=== PATIENT | male | born 1950 | race Caucasian/White ===

== ENCOUNTER 2017-05-24 03:06 | Emergency (ER) | payer OTHER ==
[~2017-05-24] VITALS: Ht 170.2 cm; Wt 87.0 kg
[2017-05-24 03:17] VITALS: TEMP 36.7; Ht 170.2 cm; Wt 87.0 kg
[2017-05-24] MEDS ORDERED: OMEP20TA PO (03:29)
[2017-05-24] MEDS ORDERED: DSY/50 PO (03:30)
[2017-05-24] MEDS ORDERED: NTRGSL/4 UT (03:31)
[2017-05-24] MEDS ORDERED: ATOR-24 PO (03:32)
[2017-05-24] MEDS ORDERED: GLC/500 PO (03:32)
[2017-05-24] MEDS ORDERED: VNTHFA/IN INH (03:34)
[2017-05-24] MEDS ORDERED: SPRIN/30 INH (03:35)
[2017-05-24] MEDS ORDERED: TAMS0.4C38 PO (03:36)
[2017-05-24] MEDS ORDERED: LOSA1TAB PO (03:36)
[2017-05-24] MEDS ORDERED: ALBUAER INH (03:37)
[2017-05-24] MEDS ORDERED: ZNTT/150 PO (03:38)
[2017-05-24] MEDS ORDERED: MoRPHine SULFATE 10 MG/ML CARP/VIAL IV STA (03:38)
[2017-05-24] MEDS ORDERED: IBUP-1428 PO (03:38)
[2017-05-24] MEDS ORDERED: SYMIN160 INH (03:39)
[2017-05-24] MEDS ORDERED: SIMV80TA2 PO (03:40)
[2017-05-24] MEDS ORDERED: ALBU18002 INH (03:41)
[2017-05-24] MEDS ORDERED: UMEC1AER INH (03:42)
[2017-05-24] MEDS ORDERED: FAMO20TA11 PO (03:43)
[2017-05-24] MEDS ORDERED: OXGN (03:43)
[2017-05-24] MEDS ORDERED: OPTIRAY 320 IV PRN (03:45)
[2017-05-24 04:05] LABS: POINT OF CARE TROPONIN I < 0.030 ng/ml (0-0.045)
[2017-05-24 04:11] LABS: BASO ABS # 0.01 K/uL (0-0.2); COMPLETE YES; EOS % 1.1 %; IG% 0.4 %; LYMPH % 6.2 %; LYMPH ABS # 1.31 K/uL (1.2-3.4); MEAN CELL VOLUME 99.4 fL (80-100); MEAN CORPUSCULAR HEMOGLOBIN 32.8 pg (25-34); MEAN PLATELET VOLUME 11.1 fL (7.4-10.4); NEUT % 85.3 %; PLATELET COUNT 204 K/uL (130-400); RED BLOOD COUNT 5.33 M/uL (4.7-6.1); WHITE BLOOD COUNT 21.15 K/uL (4.8-10.8)
[2017-05-24 04:15] LABS: INR 1.1 (0.9-1.1); PROTHROMBIN TIME (PATIENT) 11.5 SECONDS (9.0-12.0)
[2017-05-24 04:28] LABS: BUN/CREATININE RATIO 15.1 (10-20); CALCIUM 8.6 mg/dl (8.5-10.1); CREATININE 1.33 mg/dl (0.60-1.40); MAGNESIUM 1.9 mg/dl (1.8-2.4); POTASSIUM 3.9 mmol/L (3.5-5.1)
[2017-05-24] MEDS ORDERED: MoRPHine SULFATE 4 MG/ML 1 ML CARP\\VIAL ONE (04:39)
[2017-05-24] MEDS ORDERED: NURSING VERBAL MED ORDER ONE (04:45)
[2017-05-24] MEDS ORDERED: HYDROmorphone INJ 1 MG/ML SYR IV STA (05:16)
--- NOTE | 2017-05-24 06:54 | EMERGENCY ROOM VISIT NOTE ---
ED Visit Note First contact with patient: 03:27 Patient seen and examined at bedside, and attempts to obtain dopplerable pulses and the patient's left lower extremity were made. Unable to obtain DP or PT pulses in the patient's left foot. Patient's left foot slightly colder compared to right. Patient states of worsening pain not relieved with morphine. Patient initially evaluated and complained of abdominal pain. States the extreme lower actually pain started during his time and evaluation here. Physician certified medical technician assistant immediately alerted me to concerns once he disclosed us new complaint to her. She contacted our vascular surgeon here who is not cash on delivery clerk and suggested heparinization and transfer. She then contacted [place] and discussed with a vascular surgeon down there. Arrangements were made for aviation for transportation. Patient otherwise hemodynamically stable. No prior history of acute arterial occlusion, reviewed chest and abdominal CTs with PA per stat read read. Patient aware of all results and our concern as well as need for transfer and was agreeable with plan.
[2017-05-24] MEDS ORDERED: HEPARIN SOD (PORCINE) 1000 UNIT/ML 10 ML VIAL IV ONE (07:15)
[2017-05-24] MEDS ORDERED: HEPARIN SOD 5000 UNIT/0.5 ML CARP ONE (07:17)
[2017-05-24] MEDS ORDERED: HEPARIN 25000 UNIT/500 ML D5W ONE (07:25)
--- NOTE | 2017-05-24 07:30 | DIAGNOSTIC IMAGING REPORT ---
CHEST ONE VIEW PORTABLE CLINICAL HISTORY: Abdominal pain. Syncope. COMPARISON STUDY: Chest radiograph January 29, 2011. FINDINGS: Lung volumes are normal. No pneumothorax or pleural effusion is present. There is mild interstitial thickening. No consolidation is identified. Cardiomediastinal silhouette is normal. There is minimal left basilar opacity. IMPRESSION: Minimal left basilar opacity which could reflect atelectasis or an infectious process. Electronically signed by: Kobi Garcia M.D. 05/24/2017 7:28 AM Dictated Date/Time: 05/24/2017 7:27 AM
--- NOTE | 2017-05-24 07:52 | DIAGNOSTIC IMAGING REPORT ---
CT ANGIOGRAPHY OF THE CHEST, PULMONARY EMBOLUS PROTOCOL CLINICAL HISTORY: Syncope. Elevated d-dimer. COMPARISON STUDY: Chest radiographs January 29, 2011 and May 24, 2017. TECHNIQUE: Following IV administration of 94 mL of Optiray-320, helical axial images of the chest were obtained utilizing the pulmonary embolus protocol. Maximal intensity projections and sagittal and coronal reformats were viewed on an independent 3D workstation. IV contrast was administered without complication. A dose lowering technique was utilized adhering to the principles of ALARA. CT DOSE: 2085.26 mGy.cm FINDINGS: No pulmonary emboli are identified. There is no evidence of thoracic aortic dissection. A few calcified mediastinal lymph nodes are present. The heart is mildly enlarged. There is no pericardial effusion. No lobar consolidation is present. There are are mild tree-in-bud nodules within the superior segment of the left lower lobe. There are small pocket wall thickening and multifocal secretions throughout the airways. No enlarged thoracic lymph nodes are present. There is no pneumothorax or pleural effusion. Abdomen and pelvis will be reported separately. IMPRESSION: 1. No pulmonary emboli identified. 2. Mild tree-in-bud nodules within the left lower lobe which suggests an infectious bronchiolitis. Diffuse bronchial wall thickening. 3. Mild cardiomegaly. 4. Mild emphysema. Electronically signed by: Kobi Garcia M.D. 05/24/2017 7:50 AM Dictated Date/Time: 05/24/2017 7:43 AM
--- NOTE | 2017-05-24 08:02 | DIAGNOSTIC IMAGING REPORT ---
CT OF THE ABDOMEN AND PELVIS WITH CONTRAST CLINICAL HISTORY: Abdominal pain and syncope. COMPARISON STUDY: None. TECHNIQUE: Following IV administration of 94 mL of Optiray-320, axial images of the abdomen and pelvis were obtained from the lung bases to the proximal femurs. Images were reviewed in the axial, sagittal, and coronal planes. IV contrast was administered without complication. A dose lowering technique was utilized adhering to the principles of ALARA. FINDINGS: Mild biliary ductal dilatation is likely due to previous cholecystectomy. A 4.3 cm right adrenal nodule measures near water attenuation. This is likely benign. Note is made of a 5.8 cm left renal cyst. There is no peripancreatic infiltration or pancreatic ductal dilatation. The spleen is unremarkable. There is no evidence for a bowel obstruction. Note is made of sigmoid diverticulosis without evidence for acute diverticulitis. No pneumatosis, free air or portal venous gas is present. The appendix is not visualized. A bifurcated aortoiliac stent graft is in place. Aneurysm sac measures 4.9 x 4.5 cm. This study was not performed as a CTA protocol however the left iliac limb is occluded. The left external iliac artery is also occluded with suspected reconstitution at the level of the left superficial femoral artery. These findings are age indeterminate. There are no suspicious osseous lesions. IMPRESSION: 1. Postprocedural findings consistent with placement of a bifurcated aortoiliac stent graft. Age indeterminate occlusion of the left iliac limb, left external iliac artery and left common femoral artery with reconstitution at the level of the left superficial femoral artery. Findings suboptimally assessed on this non-CTA exam. 2. Colonic diverticulosis without evidence for acute diverticulitis. 3. Mild biliary ductal dilatation. This is likely related to prior cholecystectomy but could be correlated with obstructive liver function tests. Electronically signed by: Kobi Garcia M.D. 05/24/2017 8:01 AM Dictated Date/Time: 05/24/2017 7:54 AM
[2017-05-24] MEDS ORDERED: HYDROmorphone INJ 0.5 MG/0.5 ML SYR IV STA (08:03)
[2017-05-24 08:48] VITALS: BP 167/98; PULSE 77; O2SAT 96
--- NOTE | 2017-05-24 08:54 | EMERGENCY ROOM VISIT NOTE ---
History First contact with patient: 03:27 Chief Complaint: ILLNESS Stated Complaint: ILLNESS, SYNCOPE, ABDOMINAL PAIN History of Present Illness The patient is a 66 year old male who presents to the Emergency Room with complaints of generalized illness. The patient lives with his niece. His niece states that he knocked on her door prior to arrival and said that he did not feel well. She reports that he then collapsed and was "in and out of consciousness." She then called 911. The patient states that he felt like his blood pressure was low when this occurred. He has some pain in the left lower rib/upper abdomen which he rates a 5/10. He denies any shortness of breath, however per EMS his O2 saturations were around 89% on room air on arrival. The patient has a history of diabetes and COPD. He states he has a stent in his abdomen due to an abdominal aortic aneurysm repair. [facility] He does report a history of MD. He denies any history of blood clots. The patient does state that he had a loose bowel movement earlier this evening. He denies any urinary symptoms, neck pain/stiffness, fevers, recent illness, numbness, weakness. Review of Systems A complete 10 point review of systems was reviewed with the patient with pertinent positives and negatives as per history of present illness. All else were negative. Social History Smoking Status: Current Every Day Smoker Alcohol Use: none Drug Use: none Occupation Status: retired Current/Historical Medications Scheduled Atorvastatin (Lipitor), 40 MG PO DAILY Famotidine (Pepcid), 20 MG PO DIRECTED Home O2 Therapy (Oxygen), 3 LITERS NA PRN Losartan Potassium (Cozaar), 25 MG PO DAILY Metformin Hcl (Glucophage), 500 MG PO BID Omeprazole (Omeprazole), 2 TABS PO DAILY Ranitidine (Zantac), 150 MG PO BID Simvastatin (Zocor), 80 MG PO QPM Tamsulosin Hcl (Flomax), 0.4 MG PO HS Tiotropium [place] (Spiriva Handihaler), 1 CAP INH DAILY Trazodone HCl (Trazodone HCl), 50 MG PO HS Umeclidinium-Vilanterol (Anoro Ellipta 62.5-25 Mcg/INH), 1 PUFF INH DAILY Scheduled PRN Albuterol Hfa (Ventolin Hfa), 2 PUFFS INH Q6H PRN for SOB/Wheezing Albuterol Sulfate (Proventil Hfa), 2 PUFFS INH Q6HWA PRN for SOB/Wheezing Albuterol Sulfate (Proair Respiclick), 2 PUFFS INH DIRECTED PRN for SOB/ Wheezing Budesonide/Formoterol Fumarate (Symbicort 160/4.5 Inhaler ), 2 PUFFS INH BID PRN for Shortness of Breath Ibuprofen (Motrin), 800 MG PO BID PRN for Pain Nitroglycerin (Nitrostat), 0.4 MG UT PRN PRN for chest pain Physical Exam Vital Signs Date Time Temp Pulse Resp B/P (MAP) Pulse Ox O2 Delivery O2 Flow Rate FiO2 05/24/17 08:48 77 18 167/98 96 05/24/17 08:15 77 18 169/105 93 Nasal Cannula 3.0 05/24/17 06:47 92 18 167/102 92 Room Air 05/24/17 06:00 98 150/93 96 Nasal Cannula 3.0 05/24/17 04:30 80 22 148/87 94 Nasal Cannula 3.0 05/24/17 03:17 36.7 90 22 135/81 97 Nasal Cannula 3.0 Physical Exam VITALS: Vitals are noted on the nurse's note and reviewed by myself. Vital signs stable. GENERAL: This is a 66-year-old male, chronically ill-appearing, appears to be in pain. SKIN: The skin was without rashes. Normal turgor. Capillary refill within 2 seconds. EARS: External auditory canals clear, tympanic membranes pearly suarez without erythema or effusion bilaterally. EYES: Pupils equal round and reactive to light and accommodation. MOUTH: Mucous membranes dry. NECK: Supple without nuchal rigidity. HEART: Regular rate and rhythm without murmurs gallops or rubs. LUNGS: Clear to auscultation bilaterally without wheezes, rales or rhonchi. No retractions or accessory muscle use. ABDOMEN: Obese abdomen. There is diffuse, mild tenderness to palpation with focal tenderness in the left upper quadrant. No guarding or rebound tenderness. NEURO: Patient was alert and oriented to person place and time. Medical Decision & Procedures ER Provider Diagnostic Interpretation: CHEST X-RAY: No acute findings. No widened mediastinum. CT ANGIOGRAPHY OF THE CHEST, PULMONARY EMBOLUS PROTOCOL FINDINGS: No pulmonary emboli are identified. There is no evidence of thoracic aortic dissection. A few calcified mediastinal lymph nodes are present. The heart is mildly enlarged. There is no pericardial effusion. No lobar consolidation is present. There are are mild tree-in-bud nodules within the superior segment of the left lower lobe. There are small pocket wall thickening and multifocal secretions throughout the airways. No enlarged thoracic lymph nodes are present. There is no pneumothorax or pleural effusion. Abdomen and pelvis will be reported separately. IMPRESSION: 1. No pulmonary emboli identified. 2. Mild tree-in-bud nodules within the left lower lobe which suggests an infectious bronchiolitis. Diffuse bronchial wall thickening. 3. Mild cardiomegaly. 4. Mild emphysema. CT OF THE ABDOMEN AND PELVIS WITH CONTRAST FINDINGS: Mild biliary ductal dilatation is likely due to previous cholecystectomy. A 4.3 cm right adrenal nodule measures near water attenuation. This is likely benign. Note is made of a 5.8 cm left renal cyst. There is no peripancreatic infiltration or pancreatic ductal dilatation. The spleen is unremarkable. There is no evidence for a bowel obstruction. Note is made of sigmoid diverticulosis without evidence for acute diverticulitis. No pneumatosis, free air or portal venous gas is present. The appendix is not visualized. A bifurcated aortoiliac stent graft is in place. Aneurysm sac measures 4.9 x 4.5 cm. This study was not performed as a CTA protocol however the left iliac limb is occluded. The left external iliac artery is also occluded with suspected reconstitution at the level of the left superficial femoral artery. These findings are age indeterminate. There are no suspicious osseous lesions. IMPRESSION: 1. Postprocedural findings consistent with placement of a bifurcated aortoiliac stent graft. Age indeterminate occlusion of the left iliac limb, left external iliac artery and left common femoral artery with reconstitution at the level of the left superficial femoral artery. Findings suboptimally assessed on this non-CTA exam. 2. Colonic diverticulosis without evidence for acute diverticulitis. 3. Mild biliary ductal dilatation. This is likely related to prior cholecystectomy but could be correlated with obstructive liver function tests. Laboratory Results 05/24/17 03:27 Red Blood Count 5.33, Mean Corpuscular Volume 99.4, Mean Corpuscular Hemoglobin 32.8, Mean Corpuscular Hemoglobin Concent 33.0, Mean Platelet Volume 11.1, Neutrophils (%) (Auto) 85.3, Lymphocytes (%) (Auto) 6.2, Monocytes (%) (Auto) 7.0, Eosinophils (%) (Auto) 1.1, Basophils (%) (Auto) 0.0, Neutrophils # (Auto) 18.04, Lymphocytes # (Auto) 1.31, Monocytes # (Auto) 1.47, Eosinophils # (Auto) 0.23, Basophils # (Auto) 0.01 05/24/17 03:27 Test 05/24/17 03:27 05/24/17 03:45 05/24/17 07:02 White Blood Count 21.15 K/uL (4.8-10.8) Red Blood Count 5.33 M/uL (4.7-6.1) Hemoglobin 17.5 g/dL (14.0-18.0) Hematocrit 53.0 % (42-52) Mean Corpuscular Volume 99.4 fL (80-100) Mean Corpuscular Hemoglobin 32.8 pg (25-34) Mean Corpuscular Hemoglobin Concent 33.0 g/dl (32-36) Platelet Count 204 K/uL (130-400) Mean Platelet Volume 11.1 fL (7.4-10.4) Neutrophils (%) (Auto) 85.3 % Lymphocytes (%) (Auto) 6.2 % Monocytes (%) (Auto) 7.0 % Eosinophils (%) (Auto) 1.1 % Basophils (%) (Auto) 0.0 % Neutrophils # (Auto) 18.04 K/uL (1.4-6.5) Lymphocytes # (Auto) 1.31 K/uL (1.2-3.4) Monocytes # (Auto) 1.47 K/uL (0.11-0.59) Eosinophils # (Auto) 0.23 K/uL (0-0.5) Basophils # (Auto) 0.01 K/uL (0-0.2) RDW Standard Deviation 47.2 fL (36.4-46.3) RDW Coefficient of Variation 13.0 % (11.5-14.5) Immature Granulocyte % (Auto) 0.4 % Immature Granulocyte # (Auto) 0.09 K/uL (0.00-0.02) Prothrombin Time 11.5 SECONDS (9.0-12.0) Prothromb Time International Ratio 1.1 (0.9-1.1) Activated Partial Thromboplast Time 26.5 SECONDS (21.0-31.0) Partial Thromboplastin Ratio 1.0 Anion Gap 7.0 mmol/L (3-11) Est Creatinine Clear Calc Drug Dose 58.3 ml/min Estimated GFR () 64.6 Estimated GFR (Non- 55.7 BUN/Creatinine Ratio 15.1 (10-20) Calcium Level 8.6 mg/dl (8.5-10.1) Magnesium Level 1.9 mg/dl (1.8-2.4) Total Bilirubin 0.6 mg/dl (0.2-1) Aspartate Amino Transf (AST/SGOT) 13 U/L (15-37) Alanine Aminotransferase (ALT/SGPT) 19 U/L (12-78) Alkaline Phosphatase 138 U/L (45-117) Total Protein 7.1 gm/dl (6.4-8.2) Albumin 3.5 gm/dl (3.4-5.0) Globulin 3.6 gm/dl (2.5-4.0) Albumin/Globulin Ratio 1.0 (0.9-2) Bedside D-Dimer > 450 ng/mlFEU (0-450) Bedside Troponin I < 0.030 ng/ml (0-0.045) Lactic Acid Level 1.4 mmol/L (0.4-2.0) Medications Administered Medications (Trade) Dose Ordered Sig/David Route Start Time Stop Time Status Last Admin Dose Admin Morphine Sulfate (MoRPHine SULFATE INJ) 6 mg NOW STAT IV 05/24/17 03:38 05/24/17 03:39 DC 05/24/17 03:48 6 MG Morphine Sulfate (MoRPHine SULFATE INJ) 4 mg STK-MED ONCE .ROUTE 05/24/17 04:39 05/24/17 04:40 DC 05/24/17 04:42 4 MG Hydromorphone HCl (Dilaudid Inj) 1 mg NOW STAT IV 05/24/17 05:16 05/24/17 05:17 DC 05/24/17 05:22 1 MG Heparin Sodium (Porcine) (Heparin Sq 5000 Unit/0.5ml) 10,000 unit STK-MED ONCE .ROUTE 05/24/17 07:17 05/24/17 07:18 DC 05/24/17 07:27 8,000 UNIT Hydromorphone HCl (Dilaudid Inj) 0.5 mg NOW STAT IV 05/24/17 08:03 05/24/17 08:04 DC 05/24/17 08:18 0.5 MG ED Course The patient was evaluated as above. Labs were drawn and IV access was obtained. Patient was medicated with []. [] was performed and read by radiology as above. Patient was reevaluated and [] []Discharge instructions were reviewed with the patient. The patient verbalized understanding of my assessment and treatment plan and was discharged home in good condition. []Case was discussed with the [] hospitalist, []. They agreed to evaluate the patient for admission. Medical Decision Differential diagnosis includes [], among others. The patient is a []-year-old [] who presents today complaining of []. Labs revealed []. Urinalysis was [] suggestive of infection. Urine was [] . EKG was interpreted by myself and shows []. Based on the patient's presentation and work up, I feel the patient is stable for outpatient treatment. The patient was educated to return to the emergency department for any worsening of their current condition or new/concerning symptoms. [] will follow up with []. Medication Reconcilliation Current Medication List: was personally reviewed by me Blood Pressure Screening Patient's blood pressure: Elevated blood pressure Blood pressure disposition: Elevated BP felt to be situational (will be followed by vascular) Impression Primary Impression: Arterial occlusion, lower extremity Departure Information Referrals Vincent Morris D.OZach (PCP) Patient Instructions [facility]
== END 2017-05-24 08:49 | disposition short-term general hospital (02) ==
LOC: EDBD 03:06 → C.EDB 03:06
DX: I70.202 Unspecified atherosclerosis of native arteries of extremities, left leg (principal); E11.9 Type 2 diabetes mellitus without complications; J44.9 Chronic obstructive pulmonary disease, unspecified; F17.200 Nicotine dependence, unspecified, uncomplicated; I25.2 Old myocardial infarction; Z98.890 Other specified postprocedural states; Z79.84 Long term (current) use of oral hypoglycemic drugs

== ENCOUNTER 2017-07-18 10:46 | Inpatient (IN) | payer OTHER ==
[2017-07-18] VITALS (8 sets, daily range): BP systolic 132–154; BP diastolic 70–84; PULSE 54–73; TEMP 36.5–37; O2SAT 88–97; Ht 170.2 cm; Wt 85.6 kg
[~2017-07-18] VITALS: Ht 170.2 cm; Wt 85.6 kg
[~2017-07-18 10:46] MED LIST: ALBU18002 INH; ALBUAER INH; ATOR-24 PO; DSY/50 PO; FAMO20TA11 PO; GLC/500 PO; IBUP-1428 PO; LOSA1TAB PO; NTRGSL/4 UT; OMEP20TA PO; OXGN; SIMV80TA2 PO; SPRIN/30 INH; SYMIN160 INH; TAMS0.4C38 PO; UMEC1AER INH; VNTHFA/IN INH; ZNTT/150 PO
[2017-07-18] MEDS ORDERED: ENOX120I SQ (11:18)
[2017-07-18] MEDS ORDERED: WARF5TAB7 PO (11:18)
--- NOTE | 2017-07-18 11:34 | EMERGENCY ROOM VISIT NOTE ---
History Report prepared by Tita: Mendoza Garrett Under the Supervision of: Dr. Solitario Oliva M.D. First contact with patient: 11:23 Chief Complaint: SYNCOPE Stated Complaint: SYNCOPE Nursing Triage Summary: Pt. arrives via [place] transport from [place] [facility]. Pt. states that he was there for coumadin check and was sitting in a chair when he had an episode where he "felt weird, like everything went black." Per family, patient was out of it for approx. 10 seconds. [facility]. History of Present Illness The patient is a 66 year old male who presents to the Emergency Room with complaints of syncope that began just prior to arrival. Family notes he stated his "life was leaving him" and he then went unresponsive. Symptoms lasted a few minutes during which his breathing slowed, he turned blue, but per family he still had pulse He currently denies any symptoms. He does not remember event. Has chronic CP which is unchanged. He has a chronic headache with neck pain which he feels is a bit worse after the syncope but not worst of his life. Denies cp, nausea, vomiting, weakness, urinary/bowel issues, leg swelling, nor other symptoms. No medications prior to arrival. Nothing makes better nor worse. Denies recent trauma/injuries. Currently on Coumadin for which he has been changing dosing to get goal 2-3 INR. Current plan per his [place] cou[place] clinic was to do 7.5mg today, 5mg tomorrow, then 7.5mg following day and then recheck INR. Blood sugar stable per EMS. Source of History: patient, family Onset: FIELD [employer]CH[employer]IS[employer] Position: other (global) Timing: other (episode) Associated Symptoms: + headache, + neck pain Note: Pt denies lower extremity swelling. Review of Systems See HPI for pertinent positives & negatives. A total of 10 systems reviewed and were otherwise negative. Past Medical & Surgical Medical Problems: (1) Syncope Social History Smoking Status: Current Every Day Smoker Alcohol Use: none Drug Use: none Occupation Status: retired Current/Historical Medications Scheduled Atorvastatin (Lipitor), 40 MG PO DAILY Enoxaparin (Lovenox), 120 MG SQ DAILY Famotidine (Pepcid), 20 MG PO DIRECTED Home O2 Therapy (Oxygen), 3 LITERS NA PRN Losartan Potassium (Cozaar), 25 MG PO DAILY Metformin Hcl (Glucophage), 500 MG PO BID Omeprazole (Omeprazole), 2 TABS PO DAILY Ranitidine (Zantac), 150 MG PO BID Simvastatin (Zocor), 80 MG PO QPM Tamsulosin Hcl (Flomax), 0.4 MG PO HS Tiotropium [place] (Spiriva Handihaler), 1 CAP INH DAILY Trazodone HCl (Trazodone HCl), 50 MG PO HS Umeclidinium-Vilanterol (Anoro Ellipta 62.5-25 Mcg/INH), 1 PUFF INH DAILY Warfarin Sod (Jantoven), 5 MG PO DAILY Scheduled PRN Albuterol Hfa (Ventolin Hfa), 2 PUFFS INH Q6H PRN for SOB/Wheezing Budesonide/Formoterol Fumarate (Symbicort 160/4.5 Inhaler ), 2 PUFFS INH BID PRN for Shortness of Breath Allergies Coded Allergies: Penicillins (Verified Allergy, Unknown, unknown, 05/24/17) Acetaminophen (Unverified Adverse Reaction, Intermediate, WELTS ALL OVER BODY, 07/18/17) Oxycodone (Unverified Adverse Reaction, Intermediate, WELTS ALL OVER BODY , 07/18/17) Physical Exam Vital Signs Date Time Temp Pulse Resp B/P (MAP) Pulse Ox O2 Delivery O2 Flow Rate FiO2 07/18/17 13:24 63 07/18/17 13:09 67 18 135/76 93 Room Air 07/18/17 12:08 60 133/70 68 146/87 64 141/87 07/18/17 10:52 79 07/18/17 10:50 37.0 67 16 132/79 96 Nasal Cannula 3.0 Physical Exam GENERAL: Patient is chronically unwell appearing and in no acute distress. HEENT: No acute trauma, normocephalic atraumatic, mucous membranes moist, no nasal congestion, no scleral icterus. NECK: No stridor, no adenopathy, no meningismus, trachea is midline. LUNGS: No dyspnea. Distant lung sounds. Clear to auscultation and equal bilaterally. No significant wheeze, no rhonchi. HEART: Regular rate and rhythm. No murmurs, rubs, gallops appreciated. ABDOMEN: Soft, nontender, bowel sounds positive, no masses appreciated, no peritonitis. BACK: No midline tenderness, no CVA tenderness EXTREMITIES: Normal motion all extremities, no cyanosis, no edema. NEUROLOGIC: Alert and oriented, no acute motor or sensory deficits, no focal weakness, cranial nerves grossly intact. SKIN: No rash, no jaundice, no diaphoresis. Medical Decision & Procedures ER Provider Diagnostic Interpretation: Radiology results and stated below per my review and radiologist interpretation: CHEST ONE VIEW PORTABLE HISTORY: Atypical Chest Pain COMPARISON: Chest 05/24/2017. FINDINGS: Mild emphysema. No pleural effusions. No pneumothorax. Reticulonodular interstitial thickening at the lung bases persist. No new focal lung consolidations. The heart is stable in size. IMPRESSION: Stable mild reticulonodular interstitial thickening at the lung bases. Electronically signed by: Stanley Daly M.D. 07/18/2017 12:18 PM Dictated Date/Time: 07/18/2017 12:17 PM HEAD WITHOUT CONTRAST (CT) CT DOSE: 537.48 mGy.cm HISTORY: Mental status change syncope on coumadin TECHNIQUE: Multiaxial CT images of the head were performed without the use of intravenous contrast. A dose lowering technique was utilized adhering to the principles of ALARA. Comparison: None. Findings: The paranasal sinuses and mastoid air cells are clear. The calvarium and skull base are intact. The ventricles and sulci are within normal limits. There is no mass, hematoma, midline shift, or acute infarct. Impression: No acute intracranial abnormality. The above report was generated using voice recognition software. It may contain grammatical, syntax or spelling errors. Electronically signed by: Surinder Carver M.D. 07/18/2017 12:07 PM Dictated Date/Time: 07/18/2017 12:05 PM Laboratory Results 07/18/17 11:06 Red Blood Count 4.45, Mean Corpuscular Volume 99.6, Mean Corpuscular Hemoglobin 31.7, Mean Corpuscular Hemoglobin Concent 31.8, Mean Platelet Volume 10.9, Neutrophils (%) (Auto) 67.6, Lymphocytes (%) (Auto) 22.1, Monocytes (%) (Auto) 7.1, Eosinophils (%) (Auto) 1.5, Basophils (%) (Auto) 0.2, Neutrophils # (Auto) 5.54, Lymphocytes # (Auto) 1.81, Monocytes # (Auto) 0.58, Eosinophils # (Auto) 0.12, Basophils # (Auto) 0.02 07/18/17 11:06 Test 07/18/17 11:06 White Blood Count 8.19 K/uL (4.8-10.8) Red Blood Count 4.45 M/uL (4.7-6.1) Hemoglobin 14.1 g/dL (14.0-18.0) Hematocrit 44.3 % (42-52) Mean Corpuscular Volume 99.6 fL (80-100) Mean Corpuscular Hemoglobin 31.7 pg (25-34) Mean Corpuscular Hemoglobin Concent 31.8 g/dl (32-36) Platelet Count 276 K/uL (130-400) Mean Platelet Volume 10.9 fL (7.4-10.4) Neutrophils (%) (Auto) 67.6 % Lymphocytes (%) (Auto) 22.1 % Monocytes (%) (Auto) 7.1 % Eosinophils (%) (Auto) 1.5 % Basophils (%) (Auto) 0.2 % Neutrophils # (Auto) 5.54 K/uL (1.4-6.5) Lymphocytes # (Auto) 1.81 K/uL (1.2-3.4) Monocytes # (Auto) 0.58 K/uL (0.11-0.59) Eosinophils # (Auto) 0.12 K/uL (0-0.5) Basophils # (Auto) 0.02 K/uL (0-0.2) RDW Standard Deviation 47.8 fL (36.4-46.3) RDW Coefficient of Variation 13.1 % (11.5-14.5) Immature Granulocyte % (Auto) 1.5 % Immature Granulocyte # (Auto) 0.12 K/uL (0.00-0.02) Prothrombin Time 26.6 SECONDS (9.0-12.0) Prothromb Time International Ratio 2.6 (0.9-1.1) Anion Gap 3.0 mmol/L (3-11) Est Creatinine Clear Calc Drug Dose 90.3 ml/min Estimated GFR () 102.1 Estimated GFR (Non- 88.1 BUN/Creatinine Ratio 9.3 (10-20) Calcium Level 8.7 mg/dl (8.5-10.1) Troponin I < 0.015 ng/ml (0-0.045) Laboratory results as reviewed by me. Medications Administered Medications (Trade) Dose Ordered Sig/David Route Start Time Stop Time Status Last Admin Dose Admin Morphine Sulfate (MoRPHine SULFATE INJ) 4 mg NOW STAT IV 07/18/17 12:49 07/18/17 12:50 DC 07/18/17 13:08 4 MG ECG Indication: syncope Rate (beats per minute): 59 Rhythm: sinus bradycardia Findings: no acute ischemic change, no ectopy Change: EKG interpreted by me. ED Course 1123: The patient was evaluated in room C3. A complete history and physical exam was performed. 1242: The patient would like something for his headache. 1249. The patient is allergic to Tylenol. He cannot have Motrin due to Coumadin use. He is currently eating Funions. 1243: I spoke with [place] [facility]. The plan is for the patient to be on 7.5 mg Coumadin today, 5 mg tomorrow, and 7.5 mg the next day and recheck afterwards. Medical Decision Differential: Vaso-vagal, Intracerebral Event, Neurologic, Infectious, Volume Deficiency, Hypoglycemia, Electrolyte Abnormality, Cardiac Source, Toxicologic, amongst other pathologies entertained. 66 yr old male with several minute syncopal event at [place] [facility] today during which family notes poor respirations, turning blue but maintained pulse. Patient now completely back to baseline. 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 Denies any acute symptoms at present. EKG OK. Labs unremarkable. CT head negative as is cxr. Orthostatic VS unremarkable. Given symptoms and history will need syncope rule out and thus hospitalist consulted. Of note, given small dose morphine for chronic headache as allergic to tylenol and avoid NSAIDs while on Coumadin. Head Trauma GCS Score: 15 Medication Reconcilliation Current Medication List: was personally reviewed by me Blood Pressure Screening Patient's blood pressure: Elevated blood pressure Blood pressure disposition: Elevated BP felt to be situational Impression Primary Impression: Syncope Scribe Attestation The scribe's documentation has been prepared under my direction and personally reviewed by me in its entirety. I confirm that the note above accurately reflects all work, treatment, procedures, and medical decision making performed by me. Departure Information Referrals Vincent Morris D.O. (PCP) Patient Instructions My [facility]
--- NOTE | 2017-07-18 12:08 | DIAGNOSTIC IMAGING REPORT ---
HEAD WITHOUT CONTRAST (CT) CT DOSE: 537.48 mGy.cm HISTORY: Mental status change syncope on coumadin TECHNIQUE: Multiaxial CT images of the head were performed without the use of intravenous contrast. A dose lowering technique was utilized adhering to the principles of ALARA. Comparison: None. Findings: The paranasal sinuses and mastoid air cells are clear. The calvarium and skull base are intact. The ventricles and sulci are within normal limits. There is no mass, hematoma, midline shift, or acute infarct. Impression: No acute intracranial abnormality. The above report was generated using voice recognition software. It may contain grammatical, syntax or spelling errors. Electronically signed by: Surinder Carver M.D. 07/18/2017 12:07 PM Dictated Date/Time: 07/18/2017 12:05 PM
--- NOTE | 2017-07-18 12:19 | DIAGNOSTIC IMAGING REPORT ---
CHEST ONE VIEW PORTABLE HISTORY: Atypical Chest Pain COMPARISON: Chest 05/24/2017. FINDINGS: Mild emphysema. No pleural effusions. No pneumothorax. Reticulonodular interstitial thickening at the lung bases persist. No new focal lung consolidations. The heart is stable in size. IMPRESSION: Stable mild reticulonodular interstitial thickening at the lung bases. Electronically signed by: Stanley Daly M.D. 07/18/2017 12:18 PM Dictated Date/Time: 07/18/2017 12:17 PM
[2017-07-18 12:38] LABS: BASO % 0.2 %; BASO ABS # 0.02 K/uL (0-0.2); EOS % 1.5 %; EOS ABS # 0.12 K/uL (0-0.5); HEMATOCRIT 44.3 % (42-52); HEMOGLOBIN 14.1 g/dL (14.0-18.0); IG# 0.12 K/uL (0.00-0.02); LYMPH % 22.1 %; LYMPH ABS # 1.81 K/uL (1.2-3.4); MEAN CELL VOLUME 99.6 fL (80-100); MEAN CORPUSCULAR HEMOGLOBIN 31.7 pg (25-34); MEAN CORPUSCULAR HGB CONC 31.8 g/dl (32-36); MEAN PLATELET VOLUME 10.9 fL (7.4-10.4); MONO % 7.1 %; MONO ABS # 0.58 K/uL (0.11-0.59); NEUT % 67.6 %; NEUT ABS # 5.54 K/uL (1.4-6.5); PLATELET COUNT 276 K/uL (130-400); RED CELL DISTRIBUTION WIDTH CV 13.1 % (11.5-14.5); RED CELL DISTRIBUTION WIDTH SD 47.8 fL (36.4-46.3); WHITE BLOOD COUNT 8.19 K/uL (4.8-10.8)
[2017-07-18 12:42] LABS: INR 2.6 (0.9-1.1)
[2017-07-18 12:47] LABS: BLOOD UREA NITROGEN 8 mg/dl (7-18); CALCIUM 8.7 mg/dl (8.5-10.1); CARBON DIOXIDE 35 mmol/L (21-32); CREATININE 0.91 mg/dl (0.60-1.40); GLUCOSE 96 mg/dl (70-99); POTASSIUM 4.6 mmol/L (3.5-5.1); SODIUM 141 mmol/L (136-145)
[2017-07-18] MEDS ORDERED: MoRPHine SULFATE 4 MG/ML 1 ML CARP\\VIAL IV STA (12:49)
[2017-07-18] MEDS ORDERED: GLUCAGON FOR INJ 1 MG VIAL SQ PRN (13:45)
[2017-07-18] MEDS ORDERED: ONDANSETRON INJ 2 MG/ML 2 ML VIAL IV PRN (13:45)
[2017-07-18] MEDS ORDERED: ALBUTEROL HFA 8 GM INHALER INH PRN (13:45)
[2017-07-18] MEDS ORDERED: GLUCOSE 10 TABS/TUBE PO PRN (13:45)
[2017-07-18] MEDS ORDERED: GLUCOSE 40% GEL 15 GM TUBE PO PRN (13:45)
[2017-07-18] MEDS ORDERED: POLYETHYLENE (MIRALAX) 17 GM PACK PO PRN (13:45)
[2017-07-18] MEDS ORDERED: DEXTROSE 50% 50 ML SYR IV PRN (13:45)
[2017-07-18] MEDS ORDERED: BUDESONIDE/FORMOTEROL FUMARATE 160/4.5 60 PUFFS/INHALER INH PRN (13:45)
--- NOTE | 2017-07-18 14:14 | History and Physical ---
History & Physical Date & Time of Service: Jul 18, 2017 at 13:51 Chief Complaint: Syncope Primary Care Physician: Vincent Morris D.O. History of Present Illness Source: patient, family This is a 66 yo M with PMHx of CAD, hx of [place], AAA measuring 4.9x4.5 cm, hx of DVT of the LLE with recent vascular intervention of bifurcated aortoiliac stent graft and bypass of the L iliac artery due to occlusion, on anticoagulation with coumadin, HTN, HLD, DM II, chronic tobacco use since age 9, 3 packs per day and suspected COPD. [facility] [place] The patient had a syncopal event which occurred after sitting down in the office for approximately 10 minutes. Family who was present reported that the patient slumped forward eyes glossed over and he turned blue in the face. They had recently traveled from [place] to [place] and did not have a traveling oxygen pack, therefore he was off of this for ~1 hour. He reports recently having an upper respiratory infection where he finished a Z-Addison 5 days on Friday. The patient typically wears 3 L O2 at all times. He sleeps with a CPAP machine. The patient has been taking all his regularly scheduled medications including Coumadin 5 mg daily alternating with 7.5 with Lovenox injections for Bridge for the blood clot in his leg since April. Here in the ER patient's vital signs are stable. Labs are within normal limit. INR = 2.6. Past Medical/Surgical History CAD hx of [place] AAA measuring 4.9x4.5 cm hx of DVT of the LLE with recent vascular intervention of bifucated aortoiliac stent graft and bypass of the L iliac artery due to occlusion anticoagulation with coumadin HTN HLD DM II Suspected COPD Chronic tobacco smoker Social History Smoking Status: Current Every Day Smoker Smokeless Tobacco Use: No Alcohol Use: none Drug Use: none Housing status: lives with family Occupational Status: retired Allergies Coded Allergies: Penicillins (Verified Allergy, Unknown, unknown, 05/24/17) Acetaminophen (Unverified Adverse Reaction, Intermediate, WELTS ALL OVER BODY, 07/18/17) Oxycodone (Unverified Adverse Reaction, Intermediate, WELTS ALL OVER BODY , 07/18/17) Home Medications Scheduled Atorvastatin (Lipitor), 40 MG PO DAILY Enoxaparin (Lovenox), 120 MG SQ DAILY Famotidine (Pepcid), 20 MG PO DIRECTED Home O2 Therapy (Oxygen), 3 LITERS NA PRN Losartan Potassium (Cozaar), 25 MG PO DAILY Metformin Hcl (Glucophage), 500 MG PO BID Omeprazole (Omeprazole), 2 TABS PO DAILY Ranitidine (Zantac), 150 MG PO BID Simvastatin (Zocor), 80 MG PO QPM Tamsulosin Hcl (Flomax), 0.4 MG PO HS Tiotropium [place] (Spiriva Handihaler), 1 CAP INH DAILY Trazodone HCl (Trazodone HCl), 50 MG PO HS Umeclidinium-Vilanterol (Anoro Ellipta 62.5-25 Mcg/INH), 1 PUFF INH DAILY Warfarin Sod (Jantoven), 5 MG PO DAILY Scheduled PRN Albuterol Hfa (Ventolin Hfa), 2 PUFFS INH Q6H PRN for SOB/Wheezing Budesonide/Formoterol Fumarate (Symbicort 160/4.5 Inhaler ), 2 PUFFS INH BID PRN for Shortness of Breath Review of Systems Constitutional: No fever, sweats or chills Eyes: No diplopia, no worsening or blurred vision ENT: normal hearing, no trouble swallowing Respiratory: See history of present illness Cardiovascular: No chest pain, tightness or palpitations, + orthopnea, sleeps on couch with head elevated at 30 Abdomen: + Epigastric pain after meals, no nausea, vomiting, diarrhea or constipation Musculoskeletal: No joint pain, calf pain, swelling Neurologic: No weakness, numbness/tingling, or balance problems Psychiatric: No anxiety or depression Skin: No rash or itch Physical Exam Vital Signs Date Time Temp Pulse Resp B/P (MAP) Pulse Ox O2 Delivery O2 Flow Rate FiO2 07/18/17 13:24 63 07/18/17 13:09 67 18 135/76 93 Room Air 07/18/17 12:08 60 133/70 68 146/87 64 141/87 07/18/17 10:52 79 07/18/17 10:50 37.0 67 16 132/79 96 Nasal Cannula 3.0 General: awake, alert, no apparent distress, + smells of smoke, appears older than stated age Head: Normocephalic, atraumatic ENT: PERRL, EOMI, no pharyngeal exudate, mucous membranes dry Chest: + Barrel chested, on 3 L O2 via NC, prolonged expiratory phase, coarse wheezing throughout all evans Cardiac: + Bradycardic, no murmur, no JVD, normal peripheral pulses, good capillary refill Abdominal: NABS x 4 quadrants, soft, tenderness in epigastric region to palpation, no rebound, guarding Extremities: Normal inspection, no peripheral edema or erythema, calfs nontender to palpation Psych: Normal mood and affect Neuro: AAO x 3, strength intact bilaterally and related 5/5, no motor deficits, speech is clear, no peripheral sensory deficits Diagnostics Laboratory Results Results Past 24 Hours Test 07/18/17 11:06 Range/Units White Blood Count 8.19 4.8-10.8 K/uL Red Blood Count 4.45 4.7-6.1 M/uL Hemoglobin 14.1 14.0-18.0 g/dL Hematocrit 44.3 42-52 % Mean Corpuscular Volume 99.6 80-100 fL Mean Corpuscular Hemoglobin 31.7 25-34 pg Mean Corpuscular Hemoglobin Concent 31.8 32-36 g/dl Platelet Count 276 130-400 K/uL Mean Platelet Volume 10.9 7.4-10.4 fL Neutrophils (%) (Auto) 67.6 % Lymphocytes (%) (Auto) 22.1 % Monocytes (%) (Auto) 7.1 % Eosinophils (%) (Auto) 1.5 % Basophils (%) (Auto) 0.2 % Neutrophils # (Auto) 5.54 1.4-6.5 K/uL Lymphocytes # (Auto) 1.81 1.2-3.4 K/uL Monocytes # (Auto) 0.58 0.11-0.59 K/uL Eosinophils # (Auto) 0.12 0-0.5 K/uL Basophils # (Auto) 0.02 0-0.2 K/uL RDW Standard Deviation 47.8 36.4-46.3 fL RDW Coefficient of Variation 13.1 11.5-14.5 % Immature Granulocyte % (Auto) 1.5 % Immature Granulocyte # (Auto) 0.12 0.00-0.02 K/uL Prothrombin Time 26.6 9.0-12.0 SECONDS Prothromb Time International Ratio 2.6 0.9-1.1 Sodium Level 141 136-145 mmol/L Potassium Level 4.6 3.5-5.1 mmol/L Chloride Level 103 98-107 mmol/L Carbon Dioxide Level 35 21-32 mmol/L Anion Gap 3.0 3-11 mmol/L Blood Urea Nitrogen 8 7-18 mg/dl Creatinine 0.91 0.60-1.40 mg/dl Est Creatinine Clear Calc Drug Dose 90.3 ml/min Estimated GFR () 102.1 Estimated GFR (Non- 88.1 BUN/Creatinine Ratio 9.3 10-20 Random Glucose 96 70-99 mg/dl Calcium Level 8.7 8.5-10.1 mg/dl Troponin I < 0.015 0-0.045 ng/ml Diagnostic Radiology HEAD WITHOUT CONTRAST (CT) CT DOSE: 537.48 mGy.cm HISTORY: Mental status change syncope on coumadin TECHNIQUE: Multiaxial CT images of the head were performed without the use of intravenous contrast. A dose lowering technique was utilized adhering to the principles of ALARA. Comparison: None. Findings: The paranasal sinuses and mastoid air cells are clear. The calvarium and skull base are intact. The ventricles and sulci are within normal limits. There is no mass, hematoma, midline shift, or acute infarct. Impression: No acute intracranial abnormality. The above report was generated using voice recognition software. It may contain grammatical, syntax or spelling errors. Electronically signed by: Surinder Carver M.D. 07/18/2017 12:07 PM Dictated Date/Time: 07/18/2017 12:05 PM The status of this report is Signed. [~ rep ct add3]] CHEST ONE VIEW PORTABLE HISTORY: Atypical Chest Pain COMPARISON: Chest 05/24/2017. FINDINGS: Mild emphysema. No pleural effusions. No pneumothorax. Reticulonodular interstitial thickening at the lung bases persist. No new focal lung consolidations. The heart is stable in size. IMPRESSION: Stable mild reticulonodular interstitial thickening at the lung bases. Electronically signed by: Stanley Daly M.D. 07/18/2017 12:18 PM Dictated Date/Time: 07/18/2017 12:17 PM The status of this report is Signed. EKG Sinus bradycardia Incomplete right bundle branch block Borderline ECG When compared with ECG of 24-MAY-2017 04:34, QRS axis Shifted right Vent. rate 59 BPM OR interval 148 ms QRS duration 106 ms QT/QTc 412/407 ms P-R-T axes 45 12 28 Impression Assessment and Plan This is a 66 yo M with PMHx of CAD, hx of [place], AAA measuring 4.9x4.5 cm, hx of DVT of the LLE with recent vascular intervention of bifurcated aortoiliac stent graft and bypass of the L iliac artery due to occlusion, on anticoagulation with coumadin, HTN, HLD, DM II, chronic tobacco use since age 9, 3 packs per day and suspected COPD. patient presents from the [facility] in [place] after syncopal episode. Syncopal episode - Admit to telemetry - Likely due to being off home O2 of 3 L for over 1 hour due to travel time - check echocardiogram and carotid Dopplers, cardiac biomarker initially negative. Trend x 2 more sets - INR stable at 2.6 - CT of the head obtained and is negative for acute intracranial abnormalities Acute hypoxic respiratory failure at [facility], possible pna/bronchitis after recent URI last week. Suspected COPD, emphysema Chronic tobacco smoker - Patient notes O2 sats of 84% on RA at the [facility] - finish course of azithromycin on Friday. -will start the patient on Levaquin 750 mg IV, Solu-Medrol 60 mg IV Q8h for very coarse breath sounds and wheezing - CXR as above - Supportive therapy with duonebs, mucinex, pulmonary toilet - At baseline wears 3 L, CPAP at night - Smoking cessation encouraged, will order a nicotine patch Hx [place] AAA 4.9 x 4.5 cm Hx DVT s/p vascular intervention - Will continue on home medications - Continue anticoagulation with Coumadin, will order 5 mg daily for now. Patient reports some alternating between 5 and 7.5 mg recently. Pt no longer on lovenox injections. - INR = 2.6, Check daily INR DM II - Continue on metformin - ISS with accuchecks ACHS for now, likely will need more coverage with steriods DVT ppx: Teds, scds, coumadin GI ppx: Pantoprazole CODE STATUS: Full code Disposition: Patient from home, has family living with him, PT/OT to [facility]. GAVIN Physician Supervision Note: I interviewed and examined the patient. Discussed with Alicia Law PAC and agree with findings and plan as documented in the note. Any exceptions or clarifications are listed here: None This patient presents after having a syncopal episode associated with some cyanosis while at the clinic. The patient reportedly was off oxygen as his portable unit was malfunctioning for approximately 1 hour prior to going to the clinic. He suffers from chronic respiratory failure COPD. The patient is a vasculopath having recently had a revision of his iliac stenting [facility] he is on chronic Coumadin. Patient also has an aortic aneurysm and coronary artery disease having previously had an [place]. The patient was found to be hypoxic at time of the event. Here his evaluation is been fairly unrevealing he also has had stable vital signs as long as he wears his oxygen supplementation The patient awake alert appropriate he is concerned about his oxygen delivery today Cardiac exam is distant sounds to be regular his lungs have poor air movement with a story effort and prolonged exploration phase Syncope likely hypoxia related, work with case management to try to augment his oxygen having home delivery of a portable unit and home unit, treat his chronic hypoxic respiratory failure with an inhaled medications continue his anticoagulation with surveillance in the morning. If oxygen delivery cannot be coordinated he cannot leave the facility unless he has a portable unit. The patient does suffer from tobacco abuse is not interested in quitting will continue to treat his diabetes Documented By: Xavier Cortez Level of Care Telemetry Advanced Directives Existing Advance Directive: No Existing Living Will: No Existing Power of Traveling Passenger Agent: No Existing Health Care Proxy: No Resuscitation Status FULL RESUSCITATION VTE Prophylaxis VTE Risk Assessment Done? Y/N: Yes Risk Level: Low Given or contraindicated: Warfarin (Coumadin), T.E.DZach Stockings, SCD's
[2017-07-18] MEDS: LEVOFLOXACIN / D5W 750 MG in PREMIXED IN D5W 150 ML IV SCH (17:11)
[2017-07-18] MEDS: METHYLPREDNISOLONE IV 60 MG in SYRINGE 0 ML IV SCH ×2 (17:11→23:44)
--- NOTE | 2017-07-18 17:11 | DIAGNOSTIC IMAGING REPORT ---
CAROTID DOPPLER NECK ART CLINICAL HISTORY: 66 years-old Male with syncope. Acute syncope COMPARISON: Head CT 07/18/2017 TECHNIQUE: Multiple real time sonographic images of the carotid bifurcations were obtained assessing suarez scale, color Doppler and spectral wave form appearance FINDINGS: RIGHT INTERNAL CAROTID: The peak systolic velocity measured 70.3 cm/sec. The end diastolic velocity measured 25 cm/sec. The ICA to CCA ratio measured 0.72 which correlates with a stenosis of 0-50%. There is only minimal atherosclerotic plaquing throughout the right carotid bulb. Normal-appearing lymph node is seen within the right lateral neck measuring up to 6 mm in short axis. LEFT INTERNAL CAROTID: The peak systolic velocity measured 90.4 cm/sec. The end diastolic velocity measured 21.6 cm/sec. The ICA to CCA ratio measured 0.90 which correlates with a stenosis of 0-50%. Moderate atherosclerotic plaquing of the left carotid bulb and proximal left ICA. There is normal antegrade vertebral flow bilaterally. IMPRESSION: 1. Moderate atherosclerotic plaquing of the left carotid bulb and proximal left ICA. No hemodynamically significant stenosis within the right or left carotid vasculature. 2. Normal antegrade vertebral flow bilaterally. The above report was generated using voice recognition software. It may contain grammatical, syntax or spelling errors. Electronically signed by: Mike Krishna M.D. 07/18/2017 5:10 PM Dictated Date/Time: 07/18/2017 5:07 PM
[2017-07-18] MEDS: METFORMIN HCL 500 MG TAB PO SCH (17:13)
[2017-07-18] MEDS: WARFARIN SOD 5 MG TAB PO SCH (17:14)
[2017-07-18] MEDS: INSULIN ASPART 100 UNITS/ML 3 ML PEN SC SCH ×2 (17:26→20:57)
[2017-07-18] MEDS: ALBUT/IPRATROP 3MG/0.5MG NEB 3 ML VIAL INH SCH ×2 (19:08→23:16)
[2017-07-18] MEDS: TAMSULOSIN HCL 0.4 MG CAP PO SCH (20:22)
[2017-07-18] MEDS: GUAIFENESIN 600 MG TABCR PO SCH (20:23)
[2017-07-18] MEDS: RANITIDINE HCL 150 MG TAB PO SCH (20:23)
[2017-07-18] MEDS: SIMVASTATIN 80 MG TAB PO SCH (20:24)
[2017-07-18] MEDS ORDERED: TRAZODONE HCL 50 MG TAB PO SCH (21:00)
[2017-07-19] VITALS (13 sets, daily range): BP systolic 117–137; BP diastolic 70–82; PULSE 60–94; TEMP 36.3–36.8; O2SAT 84–94
[2017-07-19] MEDS ORDERED: NURSING VERBAL MED ORDER ONE (03:30)
[2017-07-19] MEDS ORDERED: IBUPROFEN 200 MG TAB PO ONE (03:45)
[2017-07-19 06:50] LABS: BASO % 0.1 %; BASO ABS # 0.01 K/uL (0-0.2); HEMATOCRIT 42.7 % (42-52); HEMOGLOBIN 13.6 g/dL (14.0-18.0); IG# 0.07 K/uL (0.00-0.02); LYMPH % 8.5 %; LYMPH ABS # 0.69 K/uL (1.2-3.4); MEAN CELL VOLUME 98.2 fL (80-100); MEAN CORPUSCULAR HEMOGLOBIN 31.3 pg (25-34); MEAN CORPUSCULAR HGB CONC 31.9 g/dl (32-36); MEAN PLATELET VOLUME 10.7 fL (7.4-10.4); MONO % 0.6 %; MONO ABS # 0.05 K/uL (0.11-0.59); NEUT % 89.9 %; NEUT ABS # 7.32 K/uL (1.4-6.5); PLATELET COUNT 270 K/uL (130-400); RED CELL DISTRIBUTION WIDTH SD 46.4 fL (36.4-46.3); WHITE BLOOD COUNT 8.14 K/uL (4.8-10.8)
[2017-07-19 07:00] LABS: INR 2.4 (0.9-1.1)
[2017-07-19] MEDS: ALBUT/IPRATROP 3MG/0.5MG NEB 3 ML VIAL INH SCH ×4 (07:03→19:12)
[2017-07-19 07:21] LABS: CALCIUM 9.1 mg/dl (8.5-10.1); CREATININE 1.28 mg/dl (0.60-1.40); POTASSIUM 4.2 mmol/L (3.5-5.1)
[2017-07-19 08:21] LABS: HEMOGLOBIN A1C 6.9 % (4.5-5.6)
[2017-07-19] MEDS: RANITIDINE HCL 150 MG TAB PO SCH ×2 (08:48→20:56)
[2017-07-19] MEDS: LOSARTAN POTASSIUM 25 MG TAB PO SCH (08:49)
[2017-07-19] MEDS: PANTOprazole SOD 40 MG TAB PO SCH (08:49)
[2017-07-19] MEDS: GUAIFENESIN 600 MG TABCR PO SCH ×2 (08:49→20:56)
[2017-07-19] MEDS: METFORMIN HCL 500 MG TAB PO SCH ×2 (08:50→16:40)
[2017-07-19] MEDS: TIOTROPIUM BROMIDE 5 PUFF/90 MCG INH INH SCH (08:51)
[2017-07-19] MEDS: METHYLPREDNISOLONE IV 60 MG in SYRINGE 0 ML IV SCH (08:51)
[2017-07-19] MEDS: INSULIN ASPART 100 UNITS/ML 3 ML PEN SC SCH ×4 (08:55→21:00)
[2017-07-19] MEDS ORDERED: FAMOTIDINE 20 MG TAB PO SCH (09:00)
[2017-07-19] MEDS ORDERED: ATORVASTATIN 40 MG TAB PO SCH (09:00)
[2017-07-19] MEDS ORDERED: INSULIN GLARGINE SOLOSTAR 100 UNITS/ML 3 ML PEN SC ONE (11:00)
[2017-07-19] MEDS ORDERED: KETOROLAC TROMETHAMINE 30 MG/ML VIAL IV STA (15:48)
[2017-07-19] MEDS: LEVOFLOXACIN / D5W 750 MG in PREMIXED IN D5W 150 ML IV SCH (16:02)
[2017-07-19] MEDS: WARFARIN SOD 5 MG TAB PO SCH (16:03)
[2017-07-19] MEDS: NYSTATIN SUSP 500,000 U/5 ML UDC PO SCH ×2 (16:41→20:56)
[2017-07-19] MEDS: METHYLPREDNISOLONE IV 30 MG in SYRINGE 0 ML IV SCH ×2 (16:41→23:32)
--- NOTE | 2017-07-19 17:50 | ECHOCARDIOGRAM REPORT ---
*NOTICE TO RECEIVING [employer] This information is strictly Confidential and protected under [place] law. [place] law prohibits you from making any further disclosure of this information unless further disclosure is expressly permitted by the written consent of the person to whom it pertains or is authorized by law. A general authorization for the release of medical or other information is not sufficient for this purpose. Hospital accepts no responsibility if the information is made available to any other person, INCLUDING THE PATIENT. Interpretation Summary * Name: BROOKS ROMERO SR Study Date: 07/19/2017 02:00 PM BP: 133/81 mmHg * Patient Location: [facility]\S\N284\S\1 HR: 80 * : 1950 (M/d/yyyy) Gender: Male Height: 67 in * Age: 66 yrs Ethnicity: CA Weight: 216 lb * Ordering Physician: Alicia Law * Referring Physician: UNKNOWN * Performed By: Patricia Gorman RCS * * Reason For Study: SYNCOPE * BSA: 2.1 m2 * -- Conclusions -- * 1. Normal left ventricular size and systolic function. EF 65-70%. No regional wall motion abnormalities. Moderate to severe concentric left ventricular hypertrophy. Type 1 diastolic dysfunction. * 2. Aortic valve sclerosis mild, without significant aortic valvular stenosis. * 3. Normal estimated right ventricular systolic pressure; 25mmHg. * 4. No prior study available for comparison. Procedure Details * A complete two-dimensional transthoracic echocardiogram was performed (2D, M-mode, Doppler and color flow Doppler). Left Ventricle * Normal left ventricular size and systolic function. EF 65-70%. No regional wall motion abnormalities. Moderate to severe concentric left ventricular hypertrophy. Type 1 diastolic dysfunction. Right Ventricle * The right ventricle is normal in size and function. * The right ventricular systolic function is normal as assessed by tricuspid annular plane systolic excursion (TAPSE) (normal >1.5 cm). Atria * The left atrial size is normal. * Right atrial size is normal. * There is no evidence of atrial septal defect, but resolution does not allow assessment for a patent foramen ovale. Mitral Valve * The mitral valve is grossly normal. * There is no mitral valve stenosis. * There is trace mitral regurgitation. Tricuspid Valve * The tricuspid valve is not well visualized, but is grossly normal. * There is no tricuspid stenosis. * There is trace tricuspid regurgitation. Aortic Valve * Aortic valve sclerosis mild, without significant aortic valvular stenosis. * There is no significant aortic regurgitation. Pulmonic Valve * The pulmonary valve is inadequately visualized, but the Doppler data is adequate for interpretation. * There is no pulmonic valvular stenosis. * There is no significant pulmonary regurgitation. Great Vessels * The aortic root is normal size. * Ascending aorta of normal dimension Pericardium/Pleural * There is no pericardial effusion. Great Vessels * Normal pulmonary venous flow pattern. * Normal inferior vena cava size and collapsability with sniff indicates a normal right atrial pressure of 3 mmHg MMode 2D Measurements and Calculations IVSd 1.7 cm IVSs 2.4 cm LVIDd 4.9 cm LVIDs 2.7 cm LVPWd 1.5 cm LVPWs 1.8 cm IVS/LVPW 1.2 FS 45.2 % EDV(Teich) 112.4 ml ESV(Teich) 26.5 ml EF(Teich) 76.4 % EDV(cubed) 117.1 ml ESV(cubed) 19.2 ml EF(cubed) 83.6 % % IVS thick 42.1 % % LVPW thick 22.1 % LV mass(C)d 346.1 grams LV mass(C)dI 165.6 grams/m\S\2 LV mass(C)s 263.2 grams LV mass(C)sI 126.0 grams/m\S\2 SV(Teich) 85.9 ml SI(Teich) 41.1 ml/m\S\2 SV(cubed) 97.9 ml SI(cubed) 46.8 ml/m\S\2 Ao root diam 3.8 cm Ao root area 11.2 cm\S\2 asc Aorta Diam 3.2 cm LVOT diam 2.0 cm LVOT area 3.3 cm\S\2 LVAs ap2 20.3 cm\S\2 LVLs ap2 5.9 cm ESV(MOD-sp2) 58.8 ml ESV(sp2-el) 59.2 ml Doppler Measurements and Calculations MV E max vesna 103.0 cm/sec MV A max vesna 138.0 cm/sec MV E/A 0.75 MV P1/2t max vesna 121.7 cm/sec MV P1/2t 71.0 msec MVA(P1/2t) 3.1 cm\S\2 MV dec slope 501.7 cm/sec\S\2 MV dec time 0.21 sec Ao V2 max 155.3 cm/sec Ao max PG 9.6 mmHg Ao max PG (full) 2.1 mmHg ROSA(V,A) 2.9 cm\S\2 ROSA(V,D) 2.9 cm\S\2 LV V1 max PG 7.6 mmHg LV V1 max 137.7 cm/sec PA V2 max 125.1 cm/sec PA max PG 6.3 mmHg TR max vesna 236.4 cm/sec RVSP(TR) 25.4 mmHg RAP systole 3.0 mmHg
[2017-07-19] MEDS: TAMSULOSIN HCL 0.4 MG CAP PO SCH (20:56)
[2017-07-19] MEDS: SIMVASTATIN 80 MG TAB PO SCH (20:56)
[2017-07-19] MEDS ORDERED: TRAZODONE HCL 100 MG TAB PO SCH (21:00)
[2017-07-19] MEDS: INSULIN GLARGINE SOLOSTAR 100 UNITS/ML 3 ML PEN SC SCH (21:01)
--- NOTE | 2017-07-19 21:18 | Progress Note ---
Subjective Date of Service: Jul 19, 2017. Subjective Pt evaluation today including: conversation w/ patient, physical exam, chart review, lab review, review of studies (echo, CT head, etc), review of inpatient medication list Pain: headache PO Intake: normal Voiding: no voiding problems tele stable overnight he "feels really good, even better than my usual" has had cough/congestion for several weeks but this has been improving records reviewed - apparently went without oxygen from [place] to [place] and then was at the [place] [facility] and didn't have O2 for another hour or two while waiting for his appointment is on 3 L NC continuously at home Review of Systems Constitutional: No fever, No chills Respiratory: + cough, + wheezing, No dyspnea at rest, No hemoptysis Cardiac: No chest pain, No orthopnea Abdomen: No pain Objective Vital Signs Date Time Temp Pulse Resp B/P (MAP) Pulse Ox O2 Delivery O2 Flow Rate FiO2 07/19/17 20:00 Nasal Cannula 3.0 07/19/17 19:27 36.5 65 22 129/79 (96) 93 Diffusion Mask 07/19/17 19:12 67 18 94 Nasal Cannula 3.0 07/19/17 16:14 36.8 77 18 126/82 (97) 90 Diffusion Mask 07/19/17 16:00 Nasal Cannula 3.0 07/19/17 15:14 94 18 89 Nasal Cannula 3.0 07/19/17 13:18 36.7 80 20 137/81 (99) 90 80 07/19/17 12:00 90 3.0 07/19/17 11:08 60 18 92 Nasal Cannula 3.0 07/19/17 08:00 91 3.0 07/19/17 07:39 36.5 78 20 117/70 (86) 91 07/19/17 07:03 75 84 07/19/17 07:03 75 18 84 BiPAP/CPAP 07/19/17 04:00 CPAP 3.0 07/19/17 02:52 36.3 67 22 133/81 (98) 90 CPAP 07/19/17 00:00 CPAP 3.0 07/18/17 23:17 73 18 91 BiPAP/CPAP 3.0 07/18/17 23:16 73 91 3.0 07/18/17 22:54 36.5 68 17 132/74 (93) 88 68 07/18/17 21:32 62 93 3.0 Physical Exam General Appearance: no apparent distress ENT: + pharyngeal erythema (with ? early thrush) Neck: no JVD Respiratory/Chest: no respiratory distress, no accessory muscle use, + wheezing (extensive b/l ) Cardiovascular: regular rate, rhythm, no gallop Abdomen: normal bowel sounds, non tender, soft, no organomegaly, + hernia ( midline, reducible ) Extremities: no pedal edema Neurologic/Psychiatric: alert, oriented x 3 Laboratory Results Last 24 Hours Test 07/19/17 06:19 07/19/17 07:10 07/19/17 11:09 07/19/17 16:35 White Blood Count 8.14 K/uL Red Blood Count 4.35 M/uL Hemoglobin 13.6 g/dL Hematocrit 42.7 % Mean Corpuscular Volume 98.2 fL Mean Corpuscular Hemoglobin 31.3 pg Mean Corpuscular Hemoglobin Concent 31.9 g/dl Platelet Count 270 K/uL Mean Platelet Volume 10.7 fL Neutrophils (%) (Auto) 89.9 % Lymphocytes (%) (Auto) 8.5 % Monocytes (%) (Auto) 0.6 % Eosinophils (%) (Auto) 0.0 % Basophils (%) (Auto) 0.1 % Neutrophils # (Auto) 7.32 K/uL Lymphocytes # (Auto) 0.69 K/uL Monocytes # (Auto) 0.05 K/uL Eosinophils # (Auto) 0.00 K/uL Basophils # (Auto) 0.01 K/uL RDW Standard Deviation 46.4 fL RDW Coefficient of Variation 13.0 % Immature Granulocyte % (Auto) 0.9 % Immature Granulocyte # (Auto) 0.07 K/uL Prothrombin Time 24.3 SECONDS Prothromb Time International Ratio 2.4 Sodium Level 136 mmol/L Potassium Level 4.2 mmol/L Chloride Level 99 mmol/L Carbon Dioxide Level 29 mmol/L Anion Gap 8.0 mmol/L Blood Urea Nitrogen 17 mg/dl Creatinine 1.28 mg/dl Est Creatinine Clear Calc Drug Dose 59.7 ml/min Estimated GFR () 67.6 Estimated GFR (Non- 58.3 BUN/Creatinine Ratio 12.9 Random Glucose 273 mg/dl Estimated Average Glucose 151 mg/dl Hemoglobin A1c 6.9 % Calcium Level 9.1 mg/dl Triglycerides Level 98 mg/dl Cholesterol Level 142 mg/dl HDL Cholesterol 38 mg/dl LDL Cholesterol, Calculated 84 mg/dl VLDL Cholesterol, Calculated 20 mg/dl Cholesterol/HDL Ratio 3.7 Bedside Glucose 234 mg/dl 84 mg/dl 156 mg/dl Test 07/19/17 20:29 Bedside Glucose 113 mg/dl Assessment and Plan 66yo male - 1. acute/chronic hypoxic resp failure - acute component 2nd to having NO portable oxygen for several hours yesterday. This was in the setting of him having a COPD exacerbation over the last 2 weeks. The acute component has resolved and his COPD is much better s/p steroids overnight. 2. COPD w/ exacerbation - wean steroids to 30mg IV q8h. Can likely transition to PO steroids tomorrow. Cont inhalers. Cont nebs. 3. T2DM, uncontrolled - 2nd to IV steroids. Add lantus, adjust novolog. 4. CAD - no ischemic symptoms and troponin at admission was negative. [facility] - unclear why he is not on aspirin, BB, etc. Cont statin agent. 5. AAA measuring 4.9x4.5 cm - noted. No abdominal or back symptoms to suggest acute rupture, etc. 6. 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 Continue coumadin; INR therapeutic today. Repeat INR in am. 7. mild acute kidney injury - repeat BMP in am. 8. hyperlipidemia - cont statin; lipids controlled on lipid panel. 9. thrush - nystatin x 10 days. 10. DVT proph - coumadin. 11. syncope - likely 2nd to severe hypoxia. Carotid duplex study and echo without cause of syncope. CT head wnl. Tele thus far normal. anticipate d/c home tomorrow AM Continued [facility] stay due to: multiple IV medications needed Discharge planning: home
[2017-07-20] VITALS (7 sets, daily range): BP systolic 136–153; BP diastolic 83–95; PULSE 66–78; TEMP 36.6; O2SAT 91–96
[2017-07-20 06:08] LABS: BASO % 0.1 %; BASO ABS # 0.01 K/uL (0-0.2); HEMOGLOBIN 13.1 g/dL (14.0-18.0); IG# 0.09 K/uL (0.00-0.02); LYMPH % 6.4 %; LYMPH ABS # 0.89 K/uL (1.2-3.4); MEAN CELL VOLUME 95.9 fL (80-100); MEAN CORPUSCULAR HEMOGLOBIN 31.4 pg (25-34); MEAN CORPUSCULAR HGB CONC 32.8 g/dl (32-36); MEAN PLATELET VOLUME 10.6 fL (7.4-10.4); MONO % 3.4 %; MONO ABS # 0.47 K/uL (0.11-0.59); NEUT % 89.4 %; NEUT ABS # 12.37 K/uL (1.4-6.5); PLATELET COUNT 283 K/uL (130-400); RED CELL DISTRIBUTION WIDTH SD 44.9 fL (36.4-46.3); WHITE BLOOD COUNT 13.83 K/uL (4.8-10.8)
[2017-07-20 06:14] LABS: INR 2.4 (0.9-1.1)
[2017-07-20 06:44] LABS: CALCIUM 9.1 mg/dl (8.5-10.1); CREATININE 1.05 mg/dl (0.60-1.40); POTASSIUM 4.1 mmol/L (3.5-5.1)
[2017-07-20] MEDS: ALBUT/IPRATROP 3MG/0.5MG NEB 3 ML VIAL INH SCH ×2 (06:56→11:18)
[2017-07-20] MEDS: TIOTROPIUM BROMIDE 5 PUFF/90 MCG INH INH SCH (08:37)
[2017-07-20] MEDS: METHYLPREDNISOLONE IV 30 MG in SYRINGE 0 ML IV SCH (08:38)
[2017-07-20] MEDS: METFORMIN HCL 500 MG TAB PO SCH (08:38)
[2017-07-20] MEDS: GUAIFENESIN 600 MG TABCR PO SCH (08:38)
[2017-07-20] MEDS: RANITIDINE HCL 150 MG TAB PO SCH (08:38)
[2017-07-20] MEDS: PANTOprazole SOD 40 MG TAB PO SCH (08:39)
[2017-07-20] MEDS: NYSTATIN SUSP 500,000 U/5 ML UDC PO SCH (08:39)
[2017-07-20] MEDS: LOSARTAN POTASSIUM 25 MG TAB PO SCH (08:39)
[2017-07-20] MEDS: INSULIN ASPART 100 UNITS/ML 3 ML PEN SC SCH (08:47)
[2017-07-20] MEDS: INSULIN GLARGINE SOLOSTAR 100 UNITS/ML 3 ML PEN SC SCH (08:48)
[2017-07-20] MEDS ORDERED: DICLOFENAC SOD 1% GEL 100 GM TUBE EXT SCH (09:00)
[2017-07-20] MEDS ORDERED: VLTG EXT (10:18)
[2017-07-20] MEDS ORDERED: DXY100 PO (10:18)
[2017-07-20] MEDS ORDERED: NYSS5 PO (10:18)
[2017-07-20] MEDS ORDERED: HYDR-5688 PO (10:18)
[2017-07-20] MEDS ORDERED: PRED10TA PO (10:18)
--- NOTE | 2017-07-20 11:06 | DIAGNOSTIC IMAGING REPORT ---
C-SPINE ROUTINE 4 OR 5 VIEWS HISTORY: 66 years-old Male neck pain, posterior scalp headaches; eval DJD acute neck pain with headaches. Concern for general disc disease. COMPARISON: None available TECHNIQUE: 5 views of the cervical spine. FINDINGS: The seventh vertebral body is not well seen on the lateral and oblique views secondary to overlying soft tissue. At least moderate intervertebral disc space narrowing is seen at the C5-C6 and C6-C7 levels with associated moderate endplate osteophytosis also seen at these levels. Multilevel facet arthropathy is noted which predominantly appears moderate in nature. These degenerative changes contribute to moderate left-sided foraminal narrowing at C6-C7, mild left foraminal narrowing at C5-C6 and mild foraminal narrowing on the right at both of these levels. Atherosclerosis within the region of the left carotid bulb. A single surgical clip projects over the left lung apex. No prevertebral soft tissue swelling. IMPRESSION: 1. No acute fracture or subluxation identified. 2. Multilevel degenerative changes of the cervical spine as above, most pronounced at C5-C6 and C6-C7. The above report was generated using voice recognition software. It may contain grammatical, syntax or spelling errors. Electronically signed by: Mike Krishna M.D. 07/20/2017 11:05 AM Dictated Date/Time: 07/20/2017 11:01 AM
--- NOTE | 2017-07-20 12:07 | Discharge Instructions ---
Discharge Instructions Date of Service Jul 20, 2017. Admission Reason for Admission: Syncope (passing out) Discharge Discharge Diagnosis / Problem: Passing out spell due to very low oxygen levels Discharge Goals Goal(s): Learn about illness, Diagnostic testing, Therapeutic intervention Activity Recommendations Activity Limitations: resume your previous activity (as tolerated) . Instructions / Follow-Up Instructions / Follow-Up From Dr. Pyle - 1. Passing out spell - This occurred because your oxygen levels in your body dropped when you were without your oxygen for several hours. We checked your heart and your arteries in your neck to ensure nothing else caused the spell and these were normal. Your telemetry (heart monitoring) was also normal. You had no stroke on CAT scan of the brain. You had no evidence of heart attack. 2. COPD exacerbation - you are recovering nicely from a flare-up of your COPD. Please do the following - * take doxycycline 100mg twice daily for 5 days; prescription provided; start this TONIGHT * doxycycline can cause reflux/heartburn as well as a rash if you go out in the sun; please use sunscreen on your face if you venture out in the sun over the next week * take prednisone course for 9 days; start this TODAY * note that the prednisone may cause your blood sugars to rise; if they do please call your family doctor at the [facility] for guidance * may take over the counter mucinex up to 1200mg twice a day as needed for cough /congestion * continue your albuterol inhaler 4 times a day for the next few days, then you can go to as needed on the albuterol * continue your oxygen 3 liters as previous 3. Your coumadin level on day of discharge is 2.4. The antibiotics may interact with your coumadin. Thus, please have your coumadin level (INR) drawn in 3 days to ensure stability. 4. 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 I believe that your pain is from the arthritis. Please follow-up with you doctor at the [facility] for this. In the meantime you can use the following - * voltaren gel 4 grams up to 4 times a day as needed for pain; place on the neck and rub in * hydrocodone/acetaminophen, 1 tablet every 6 hours as needed * do not drink alcohol with the hydrocodone and do not drive as the hydrocodone may make you sleepy * the hydrocodone may make you constipated as well so you may need to take a stool softener while on them 5. See your family doctor at the [facility] within 2-3 days. 6. Return to [facility] if - * you develop worsening shortness of breath, cough, chest pain * you develop worsening neck pain/headaches * you have another spell of passing out * any other concerns Current Hospital Diet Patient's current hospital diet: AHA Diet (Heart Healthy), Diabetes Type 2 Diet Discharge Diet Recommended Diet: AHA Diet (Heart Healthy), Diabetes Type 2 Diet Procedures Procedures Performed: 1. echocardiogram - normal heart function. 2. CAT scan of the brain - normal. 3. sonogram of the carotid arteries - normal, no blockages. 4. cervical spine x-rays - Pending Studies Studies pending at discharge: no Laboratory Results Hemoglobin A1c Test 07/19/17 06:19 Range/Units Estimated Average Glucose 151 mg/dl Hemoglobin A1c 6.9 H 4.5-5.6 % Lipid Panel Test 07/19/17 06:19 Range/Units Triglycerides Level 98 0-150 mg/dl Cholesterol Level 142 0-200 mg/dl HDL Cholesterol 38 mg/dl Cholesterol/HDL Ratio 3.7 LDL Cholesterol, Calculated 84 mg/dl Medical Emergencies . Who to Call and When: Medical Emergencies: If at any time you feel your situation is an emergency, please call 911 immediately. . Non-Emergent Contact Non-Emergency issues call your: Primary Care Provider Call Non-Emergent contact if: temperature is above 100.5, your pain is not controlled, your pain is worsening, you have any medication questions . . "Provider Documentation" section prepared by Vinicius Pyle. . VTE Core Measure Inpt VTE Proph given/why not?: Warfarin (Coumadin), T.E.DZach Dc, SCD's
--- NOTE | 2017-07-23 13:55 | Discharge Summary ---
Discharge Summary Date of Service Jul 23, 2017. Discharge Summary Admission Date: Jul 18, 2017 at 13:49 Discharge Date: Jul 20, 2017 Discharge Disposition: Home Principal Diagnosis: acute/chronic hypoxic respiratory failure with COPD exacerbation Problems/Secondary Diagnoses: 1. CAD with hx of CT 2. AAA measuring 4.9x4.5 cm 3. hx of DVT of the LLE 4. PAD with recent vascular intervention of bifurcated aortoiliac stent graft and bypass of the L iliac artery due to occlusion 5. HTN 6. hyperlipidemia 7. T2DM 8. tobacco dependence 9. COPD with exacerbation 10. 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 BPH 12. mild acute kidney injury - resolved 13. thrush 14. syncope - 2nd to hypoxia Procedures: 1. CT head negative for stroke or ICH. 2. carotid duplex u/s: IMPRESSION: 1. Moderate atherosclerotic plaquing of the left carotid bulb and proximal left ICA. No hemodynamically significant stenosis within the right or left carotid vasculature. 2. Normal antegrade vertebral flow bilaterally. 3. cervical spine x-rays: FINDINGS: The seventh vertebral body is not well seen on the lateral and oblique views secondary to overlying soft tissue. At least moderate intervertebral disc space narrowing is seen at the C5-C6 and C6-C7 levels with associated moderate endplate osteophytosis also seen at these levels. Multilevel facet arthropathy is noted which predominantly appears moderate in nature. These degenerative changes contribute to moderate left-sided foraminal narrowing at C6-C7, mild left foraminal narrowing at C5-C6 and mild foraminal narrowing on the right at both of these levels. 4. echocardiogram: * -- Conclusions -- * 1. Normal left ventricular size and systolic function. EF 65-70%. No regional wall motion abnormalities. Moderate to severe concentric left ventricular hypertrophy. Type 1 diastolic dysfunction. * 2. Aortic valve sclerosis mild, without significant aortic valvular stenosis. * 3. Normal estimated right ventricular systolic pressure; 25mmHg. * 4. No prior study available for comparison. Consultations: PT, OT Medication Reconciliation New Medications: Doxycycline Hyclate (Doxycycline Hyclate) 100 Mg Cap 100 MG PO BID for 5 Days, #10 CAP 0 Refills Hydrocodone/Acetaminophen 5MG/325MG ([place] 5MG/325MG) Tab 1 TABLET PO Q6H PRN for neck pain, #15 TAB 0 Refills Prednisone Tab (Prednisone) 10 Mg Tab 10 MG PO DIRECTED, #21 TAB 0 Refills start 07/20: take 4 tabs day 1, 3 tabs days 2-4, 2 tabs days 5-7, 1 tab days 8-9. Diclofenac Sod (Voltaren) 100 Appln/100 Gm Gel 1 APPLN EXT QID, #1 TUBE 0 Refills apply 4 grams to neck/lower scalp up to 4 times a day as needed for pain Nystatin (Nystatin) 5 Ml Susp 5 ML PO QID for 7 Days, #150 ML 0 Refills swish and swallow Continued Medications: Albuterol Hfa (Ventolin Hfa) 200 Puffs/54956 Mcg Aers 2 PUFFS INH Q6H PRN for SOB/Wheezing, #1 INHALER Budesonide/Formoterol Fumarate (Symbicort 160/4.5 Inhaler ) Aero 2 PUFFS INH BID PRN for Shortness of Breath, INHALER Home O2 Therapy (Oxygen) Gas 3 LITERS NA PRN, BTL Losartan Potassium (Cozaar) 25 Mg Tab 25 MG PO DAILY, TAB Metformin Hcl (Glucophage) 500 Mg Tab 500 MG PO BID, TAB Omeprazole (Omeprazole) 20 Mg Tab 2 TABS PO DAILY for 90 Days, TAB 3 Refills Ranitidine (Zantac) 150 Mg Tab 150 MG PO BID, TAB Simvastatin (Zocor) 80 Mg Tab 80 MG PO QPM, TAB Tamsulosin Hcl (Flomax) 0.4 Mg Cap 0.4 MG PO HS, CAP Tiotropium [place] (Spiriva Handihaler) 30 Puff/540 Mcg Aerp 1 CAP INH DAILY, INHALER Trazodone HCl (Trazodone HCl) 50 Mg Tab 50 MG PO HS Umeclidinium-Vilanterol (Anoro Ellipta 62.5-25 Mcg/INH) 1 Aer Aer 1 PUFF INH DAILY Warfarin Sod (Jantoven) 5 Mg Tab 5 MG PO DAILY, TAB Discontinued Medications: Atorvastatin (Lipitor) 40 Mg Tab 40 MG PO DAILY, TAB Enoxaparin (Lovenox) 120 Mg/0.8 Ml Inj 120 MG SQ DAILY, SYR Famotidine (Pepcid) 20 Mg Tab 20 MG PO DIRECTED, TAB Discharge Exam Physical Exam: General Appearance: no apparent distress ENT: pharynx normal Neck: no JVD, + pertinent finding (restricted active/passive ROM; tender paraspinal muscles of posterior neck ) Respiratory/Chest: no respiratory distress, no accessory muscle use, + wheezing (scant, b/l ) Cardiovascular: regular rate, rhythm, no gallop, no murmur, normal peripheral pulses Abdomen / GI: normal bowel sounds, non tender, soft, no organomegaly Extremities: no pedal edema Neurologic/Psychiatric: no motor/sensory deficits, alert, normal mood/affect , normal reflexes, oriented x 3 Hospital Course HISTORY OF PRESENT ILLNESS: This is a 66 yo male with PMHx of CAD, hx of CT, AAA measuring 4.9x4.5 cm, hx of DVT of the LLE with recent vascular intervention of bifurcated aortoiliac stent graft and bypass of the L iliac artery due to occlusion, on anticoagulation with coumadin, HTN, HLD, DM II, chronic tobacco use since age 9 (3 packs per day), COPD, and chronic hypoxic respiratory failure on home O2 who presented from the [place] in [place] after he suffered hypoxia and syncope while sitting in the [place] clinic lobby. The patient had a syncopal event which occurred after sitting down in the office. Family who was present reported that the patient slumped forward and his eyes glossed over and he turned blue in the face. The event lasted about 10 seconds. The patient reported he "felt weird" before the event occurred. They had recently traveled from [place] to [place] and did not have a traveling oxygen pack, therefore he was off of this for ~1 hour, possibly even closer to 2 hours. He reports recently having an upper respiratory infection where he finished a Z-[place] on this past Friday. The patient typically wears 3 L O2 at all times. He sleeps with a CPAP machine. After reapplication of oxygen the patient's status improved and he was brought to [facility] for evaluation. HOSPITAL COURSE: 1. acute/chronic hypoxic resp failure - acute component was 2nd to having NO portable oxygen for several hours on the day of presentation. This was in the setting of him having a COPD exacerbation over the last 2 weeks. The acute component resolved with simply putting him back on oxygen. He was treated for COPD exacerbation with IV steroids with rapid improvement in pulmonary symptoms. 2. COPD w/ exacerbation - will complete a steroid taper after discharge along with a short course of oral doxycycline. He will continue his normal inhalers & nebs. 3. CAD - he had no ischemic symptoms while hospitalized, troponin was negative , and EKG was normal. [facility] - I am unclear why he is not on aspirin, BB , etc. Continue statin agent. 4. AAA measuring 4.9x4.5 cm - No abdominal or back symptoms to suggest acute rupture, etc while hospitalized. 5. 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 He will continue coumadin; INR therapeutic throughout his stay. INR on day of discharge was 2.4. 6. mild acute kidney injury - this resolved with supportive care measures. Discharge creatinine was 1. 7. syncope - likely 2nd to severe hypoxia. Carotid duplex study and echo were normal. CT head was normal. Telemetry was normal. Troponins were negative. 8. chronic posterior headaches / neck pain - I suspect this is due to cervical spine DJD. x-rays confirmed mult-level cervical spine DJD. [facility]. may need more advanced imaging. 9. tobacco dependence - counseled to quit. Total Time Spent: Greater than 30 minutes This includes examination of the patient, discharge planning, medication reconciliation, and communication with other providers. Discharge Instructions Please refer to the electronic Patient Visit Report (Discharge Instructions) for additional information. Follow-Up see Dr. Morris, PCP, within 2-3 days Additional Copies To Vincent Morris D.O.
== END 2017-07-20 12:30 | disposition home or self-care (01) | DRG 190 ==
LOC: EDBD 10:46 → C.EDC 10:47 → C.MED 13:49 → ENRESERV 14:14
PROVIDERS: ADMIT Internal Medicine; ATTEND Internal Medicine
DX: J44.1 Chronic obstructive pulmonary disease with (acute) exacerbation (principal); J96.01 Acute respiratory failure with hypoxia; N17.9 Acute kidney failure, unspecified; B37.0 Candidal stomatitis; R55 Syncope and collapse; I25.2 Old myocardial infarction; I25.10 Atherosclerotic heart disease of native coronary artery without angina pectoris; I71.4 Abdominal aortic aneurysm, without rupture; I10 Essential (primary) hypertension; E78.5 Hyperlipidemia, unspecified; E11.65 Type 2 diabetes mellitus with hyperglycemia; F17.200 Nicotine dependence, unspecified, uncomplicated; Z79.01 Long term (current) use of anticoagulants; Z79.84 Long term (current) use of oral hypoglycemic drugs; Z79.899 Other long term (current) drug therapy; Z86.718 Personal history of other venous thrombosis and embolism; Z99.81 Dependence on supplemental oxygen

== ENCOUNTER → 2018-02-06 | Day surgery (SDC) | payer OTHER ==
[2017-11-25 11:34] VITALS: BMI 31.0
[~2018-02-06] VITALS: Ht 170.2 cm; Wt 90.9 kg
[~2018-02-06] MED LIST changes: -ALBU18002 INH; -ALBUAER INH; +ASPI-232 PO; -ATOR-24 PO; -FAMO20TA11 PO; -IBUP-1428 PO; +KETAMINE HCL INJ 50 MG/ML 10 ML VIAL ONE; +LIDOCAINE HCL 2% 2 ML VIAL (20MG/ML) ONE; +MULT-506 PO; -NTRGSL/4 UT; +NYSS5 PO; +PROPOFOL IV EMULSION 10 MG/ML 20 ML VIAL ONE; +RANI150T85 PO; +SODIUM CHLORIDE 0.9% 500ML 500 ML IV ONE; -UMEC1AER INH; +VLTG EXT; -ZNTT/150 PO
[2018-02-06 11:58] VITALS: BMI 31.0
[2018-02-06 14:05] VITALS: Ht 170.2 cm; Wt 90.9 kg
--- NOTE | 2018-02-06 14:12 | Endo History and Physical ---
History & Physical Date of Service: Feb 06, 2018. Chief Complaint: CHANGE IN BOWEL HABITS Referring Physician: DR. ALCOCER History of Present Illness change in BM; hx of polyps 10 years ago Past Surgical History Hx Cardiac Surgery: Yes (HEART CATH X1 WITH 4 OR 5 STENTS) Hx Internal Defibrillator: No Hx Pacemaker: No Hx Abdominal Surgery: Yes (FERMIN, APPY) Hx of Implantable Prosthesis: No Hx Post-Op Nausea and Vomiting: No Hx Cancer Surgery: No Hx Thoracic Surgery: No Hx Orthopedic: No Hx Urinary Tract Surgery: No Family History None Social History Smoking Status: Former Smoker Hx Substance Use: No Hx Alcohol Use: Yes (A BEER ONCE A YEAR) Allergies Coded Allergies: Penicillins (Verified Allergy, Intermediate, HIVES, 02/06/18) Adhesives (Verified Allergy, Mild, ITCHY, 11/25/17) Acetaminophen (Verified Adverse Reaction, Intermediate, WELTS ALL OVER BODY, 02/06/18) Oxycodone (Verified Adverse Reaction, Intermediate, WELTS ALL OVER BODY, ) Current Medications Reported Home Medications Medications Dose Route/Sig Max Daily Dose Days Date Category Dose Instructions Multivitamin (Multivitamins) Tab 1 Tab PO DAILY 11/25/17 Reported Voltaren (Diclofenac Sod) 100 Appln/100 Gm Gel 1 Appln EXT QID 07/20/17 Rx apply 4 grams to neck/lower scalp up to 4 times a day as needed for pain Nystatin 5 Ml Susp 5 Ml PO QID 7 07/20/17 Rx swish and swallow Oxygen Gas 3 Liters NA DAILY 05/24/17 Reported Zocor (Simvastatin) 80 Mg Tab 80 Mg PO QPM 05/24/17 Reported Symbicort 160/4.5 Inhaler (Budesonide/Formoterol Fumarate) Aero 2 Puffs INH BID PRN 05/24/17 Reported Zantac (Ranitidine HCl) 150 Mg Tab 150 Mg PO BID 05/24/17 Reported Flomax (Tamsulosin Hcl) 0.4 Mg Cap 0.4 Mg PO HS 05/24/17 Reported Cozaar (Losartan Potassium) 25 Mg Tab 25 Mg PO DAILY 05/24/17 Reported Spiriva Handihaler (Tiotropium [place]) 30 Puff/540 Mcg Aerp 1 Cap INH DAILY 05/24/17 Reported Ventolin Hfa (Albuterol) 200 Puffs/13981 Mcg Aers 2 Puffs INH Q6H PRN 05/24/17 Reported Glucophage (Metformin Hcl) 500 Mg Tab 500 Mg PO DAILY 05/24/17 Reported Trazodone HCl 50 Mg Tab 50 Mg PO HS 05/24/17 Reported Omeprazole 20 Mg Tab 2 Tabs PO DAILY 90 05/24/17 Reported Vital Signs Weight (Kilograms): 90.91 Height (Feet): 5 Height (Inches): 7 Date Time Temp Pulse Resp B/P (MAP) Pulse Ox O2 Delivery O2 Flow Rate FiO2 02/06/18 14:05 37.1 86 24 158/102 (120) 92 Nasal Cannula 3 Physical Exam General Appearance: WD/WN, no apparent distress Respiratory/Chest: Auscultation: breath sounds normal Cardiovascular: Heart Auscultation: RRR Abdomen: Bowel Sounds: normal Inspection & Palpation: soft, non-distended, no tenderness, guarding & rebound Assessment and Plan colonoscopy
--- NOTE | 2018-02-06 15:02 | Discharge Instructions ---
Endoscopy Patient Instructions Date / Procedure(s) Performed Feb 06, 2018. Colonoscopy Allergy Information Coded Allergies: Penicillins (Verified Allergy, Intermediate, HIVES, 02/06/18) Adhesives (Verified Allergy, Mild, ITCHY, 11/25/17) Acetaminophen (Verified Adverse Reaction, Intermediate, WELTS ALL OVER BODY, 02/06/18) Oxycodone (Verified Adverse Reaction, Intermediate, WELTS ALL OVER BODY, ) Discharge Date / Findings Feb 06, 2018. polyps - removed Medication Instructions Stopped Medication(s): WAS TOLD TO HOLD THE ASA 81MG, HOWEVER PT HAD TAKEN IT THIS AM Restart Stopped Medication(s): Reported Home Medications Medications Dose Route/Sig Max Daily Dose Days Date Category Dose Instructions Multivitamin (Multivitamins) Tab 1 Tab PO DAILY 11/25/17 Reported Voltaren (Diclofenac Sod) 100 Appln/100 Gm Gel 1 Appln EXT QID 07/20/17 Rx apply 4 grams to neck/lower scalp up to 4 times a day as needed for pain Nystatin 5 Ml Susp 5 Ml PO QID 7 07/20/17 Rx swish and swallow Oxygen Gas 3 Liters NA DAILY 05/24/17 Reported Zocor (Simvastatin) 80 Mg Tab 80 Mg PO QPM 05/24/17 Reported Symbicort 160/4.5 Inhaler (Budesonide/Formoterol Fumarate) Aero 2 Puffs INH BID PRN 05/24/17 Reported Zantac (Ranitidine HCl) 150 Mg Tab 150 Mg PO BID 05/24/17 Reported Flomax (Tamsulosin Hcl) 0.4 Mg Cap 0.4 Mg PO HS 05/24/17 Reported Cozaar (Losartan Potassium) 25 Mg Tab 25 Mg PO DAILY 05/24/17 Reported Spiriva Handihaler (Tiotropium [place]) 30 Puff/540 Mcg Aerp 1 Cap INH DAILY 05/24/17 Reported Ventolin Hfa (Albuterol) 200 Puffs/92968 Mcg Aers 2 Puffs INH Q6H PRN 05/24/17 Reported Glucophage (Metformin Hcl) 500 Mg Tab 500 Mg PO DAILY 05/24/17 Reported Trazodone HCl 50 Mg Tab 50 Mg PO HS 05/24/17 Reported Omeprazole 20 Mg Tab 2 Tabs PO DAILY 90 05/24/17 Reported Reported Home Medications Medications Dose Route/Sig Max Daily Dose Days Date Category Dose Instructions Multivitamin (Multivitamins) Tab 1 Tab PO DAILY 11/25/17 Reported Voltaren (Diclofenac Sod) 100 Appln/100 Gm Gel 1 Appln EXT QID 07/20/17 Rx apply 4 grams to neck/lower scalp up to 4 times a day as needed for pain Nystatin 5 Ml Susp 5 Ml PO QID 7 07/20/17 Rx swish and swallow Oxygen Gas 3 Liters NA DAILY 05/24/17 Reported Zocor (Simvastatin) 80 Mg Tab 80 Mg PO QPM 05/24/17 Reported Symbicort 160/4.5 Inhaler (Budesonide/Formoterol Fumarate) Aero 2 Puffs INH BID PRN 05/24/17 Reported Zantac (Ranitidine HCl) 150 Mg Tab 150 Mg PO BID 05/24/17 Reported Flomax (Tamsulosin Hcl) 0.4 Mg Cap 0.4 Mg PO HS 05/24/17 Reported Cozaar (Losartan Potassium) 25 Mg Tab 25 Mg PO DAILY 05/24/17 Reported Spiriva Handihaler (Tiotropium [place]) 30 Puff/540 Mcg Aerp 1 Cap INH DAILY 05/24/17 Reported Ventolin Hfa (Albuterol) 200 Puffs/29226 Mcg Aers 2 Puffs INH Q6H PRN 05/24/17 Reported Glucophage (Metformin Hcl) 500 Mg Tab 500 Mg PO DAILY 05/24/17 Reported Trazodone HCl 50 Mg Tab 50 Mg PO HS 05/24/17 Reported Omeprazole 20 Mg Tab 2 Tabs PO DAILY 90 05/24/17 Reported Provider Instructions Activity Restrictions - No exercising or heavy lifting for 24 hours. - Do not drink alcohol the day of the procedure. - Do not drive a car or operate machinery until the day after the procedure. - Do not make any important decisions or sign important papers in 24 hours after the procedure. Following Day: - Return to full activity which may include returning to work/school. Diet Start your diet with liquids and light foods (jello, soup, juice, toast). Then eat your usual diet if not nauseated. Treatment For Common After Affects For mild abdominal pain, bloating, or excessive gas: - Rest - Eat lightly - Lie on right side Follow-Up Information Follow-up with DR. ALCOCER as scheduled Anesthesia Information What You Should Know You have had a procedure that required some medicine to reduce anxiety and discomfort. This treatment is called moderate sedation. After receiving the treatment, you may be sleepy, but you will be able to breathe on your own. The effects of the treatment may last for several hours. Follow these instructions along with Activity/Diet recommendations noted above: * Do NOT do anything where dizziness or clumsiness would be dangerous. * Rest quietly at home today, then you can be up and about tomorrow. * Have a responsible person stay with you the rest of today. * You may have had an I.V. today. If so, you may take the dressing off later today. Recommendations Call your doctor if: * Trouble breathing * Continuous vomiting for more than 24 hours * Temperature above 101 degrees * Severe abdominal pain or bloating * Pain not relieved by pain medicine ordered * There is increased drainage or redness from any incision * A large amount of rectal bleeding greater than 2-3 tablespoons. (If you had a polyp/s removed or have hemorrhoids, a small amount of blood - from the rectum is to be expected.) * You have any unanswered questions or concerns. IN THE EVENT OF A SERIOUS EMERGENCY, GO TO THE NEAREST EMERGENCY ROOM Your discharge instructions were prepared by provider Philip Craft. Patient Instructions Signature Page Handy Martin Patient (or Guardian) Signature/Date: I have read and understand the instructions given to me by my caregivers. Caregiver/RN/Doctor Signature/Date: The above-named patient and/or guardian has received patient instructions on this date. + Original Patient Signature Page (only) stays with chart. Please make copy for patient.
--- NOTE | 2018-02-06 15:13 | Anesthesiology Progress Note ---
Anesthesia Post Op Note Date & Time Feb 06, 2018 at 15:13 Vital Signs Pain Intensity: 0 Vital Signs Past 12 Hours Date Time Temp Pulse Resp B/P (MAP) Pulse Ox O2 Delivery O2 Flow Rate FiO2 02/06/18 14:05 37.1 86 24 158/102 (120) 92 Nasal Cannula 3 Notes Mental Status: alert / awake / arousable, participated in evaluation Pt Amnestic to Procedure: Yes Nausea / Vomiting: adequately controlled Pain: adequately controlled Airway Patency, RR, SpO2: stable & adequate BP & HR: stable & adequate Hydration State: stable & adequate Anesthetic Complications: no major complications apparent
[2018-02-06 15:40] VITALS: BP 125/77; PULSE 64; O2SAT 97
--- NOTE | 2018-02-06 16:44 | GI REPORT ---
Patient Name: Handy Martin Procedure Date: 02/06/2018 1:50 PM Date of : 1950 Admit Type: Outpatient Age: 67 Gender: Male Attending MD: Philip Craft MD Procedure: Colonoscopy Providers: Philip Craft MD Referring MD: Philip Craft MD Indications: Personal history of colonic polyps Medicines: Propofol per Anesthesia Complications: No immediate complications. Estimated blood loss: Minimal. Estimated Blood Loss: Estimated blood loss was minimal. Estimated blood loss was minimal. Procedure: Pre-Anesthesia Assessment: - Prior to the procedure, a History and Physical was performed, and patient medications and allergies were reviewed. The patient's tolerance of previous anesthesia was also reviewed. The risks and benefits of the procedure and the sedation options and risks were discussed with the patient. All questions were answered, and informed consent was obtained. Prior Anticoagulants: The patient has taken no previous anticoagulant or antiplatelet agents. ASA Grade Assessment: II - A patient with mild systemic disease. After reviewing the risks and benefits, the patient was deemed in satisfactory condition to undergo the procedure. After I obtained informed consent, the scope was passed under direct vision. Throughout the procedure, the patient's blood pressure, pulse, and oxygen saturations were monitored continuously. The scope was introduced through the anus and advanced to the cecum, identified by appendiceal orifice and ileocecal valve. The colonoscopy was performed without difficulty. The patient tolerated the procedure well. The quality of the bowel preparation was fair. Findings: The perianal and digital rectal examinations were normal. Pertinent negatives include normal sphincter tone, no palpable rectal lesions and no anal lesion or abnormality was detected. A 5 mm polyp was found in the rectum. The polyp was sessile. The polyp was removed with a cold snare. Resection and retrieval were complete. Estimated blood loss was minimal. Verification of patient identification for the specimen was done by the physician and diploma pharmacy technician using the patient's name and medical record number. A 5 mm polyp was found at 20 cm proximal to the anus. The polyp was sessile. The polyp was removed with a cold snare. Resection and retrieval were complete. Estimated blood loss was minimal. Verification of patient identification for the specimen was done by the physician and diploma pharmacy technician using the patient's name and medical record number. A 20 mm polyp was found in the proximal ascending colon. The polyp was sessile. The polyp was removed with a hot snare. Resection and retrieval were complete. Estimated blood loss was minimal. Verification of patient identification for the specimen was done by the physician and diploma pharmacy technician using the patient's name and medical record number. To prevent bleeding after the polypectomy, one hemostatic clip was successfully placed (MR conditional). There was no bleeding during, or at the end, of the procedure. A 5 mm polyp was found in the cecum. The polyp was sessile. The polyp was removed with a cold snare. Resection and retrieval were complete. Estimated blood loss was minimal. Verification of patient identification for the specimen was done by the physician and diploma pharmacy technician using the patient's name and medical record number. A 6 mm polyp was found in the appendiceal orifice. The polyp was sessile. The polyp was removed with a hot snare. Resection and retrieval were complete. Estimated blood loss was minimal. Verification of patient identification for the specimen was done by the physician and diploma pharmacy technician using the patient's name and medical record number. A 6 mm polyp was found in the transverse colon. The polyp was sessile. The polyp was removed with a hot snare. Resection and retrieval were complete. Estimated blood loss was minimal. Verification of patient identification for the specimen was done by the physician and diploma pharmacy technician using the patient's name and medical record number. A 10 mm polyp was found at 22 cm proximal to the anus. The polyp was sessile. The polyp was removed with a hot snare. Resection and retrieval were complete. Estimated blood loss was minimal. Verification of patient identification for the specimen was done by the physician and diploma pharmacy technician using the patient's name and medical record number. Many small-mouthed diverticula were found in the sigmoid colon. The exam was otherwise without abnormality. No additional abnormalities were found on retroflexion. Non-bleeding internal hemorrhoids were found during retroflexion. The hemorrhoids were moderate. Impression: - Preparation of the colon was fair. - One 5 mm polyp in the rectum, removed with a cold snare. Resected and retrieved. - One 5 mm polyp at 20 cm proximal to the anus, removed with a cold snare. Resected and retrieved. - One 20 mm polyp in the proximal ascending colon, removed with a hot snare. Resected and retrieved. Clip (MR conditional) was placed. - One 5 mm polyp in the cecum, removed with a cold snare. Resected and retrieved. - One 6 mm polyp at the appendiceal orifice, removed with a hot snare. Resected and retrieved. - One 6 mm polyp in the transverse colon, removed with a hot snare. Resected and retrieved. - One 10 mm polyp at 22 cm proximal to the anus, removed with a hot snare. Resected and retrieved. Recommendation: - Discharge patient to home (ambulatory). - Resume regular diet. - Continue present medications. - Await pathology results. - Repeat colonoscopy for surveillance based on pathology results. - Return to referring physician as previously scheduled. MD Philip Amin MD 02/06/2018 4:43:23 PM This report has been signed electronically. Note Initiated On: 02/06/2018 1:50 PM Number of Addenda: 0 I attest to the content of the Intraoperative Record and orders documented therein, exceptions below {[id number]}
== END | disposition home or self-care (01) ==
LOC: C.GI 13:20
PROVIDERS: ATTEND Internal Medicine Gastroenterology
DX: Z86.010 Personal history of colon polyps (principal); R19.4 Change in bowel habit; K62.1 Rectal polyp; D12.6 Benign neoplasm of colon, unspecified; D12.2 Benign neoplasm of ascending colon; K63.5 Polyp of colon; D12.1 Benign neoplasm of appendix; D12.3 Benign neoplasm of transverse colon; K64.8 Other hemorrhoids; E11.9 Type 2 diabetes mellitus without complications; G47.33 Obstructive sleep apnea (adult) (pediatric); I25.10 Atherosclerotic heart disease of native coronary artery without angina pectoris; I73.9 Peripheral vascular disease, unspecified; J44.9 Chronic obstructive pulmonary disease, unspecified; Z88.0 Allergy status to penicillin; Z88.5 Allergy status to narcotic agent; Z88.8 Allergy status to other drugs, medicaments and biological substances; Z87.891 Personal history of nicotine dependence; Z99.81 Dependence on supplemental oxygen; Z79.899 Other long term (current) drug therapy; Z79.84 Long term (current) use of oral hypoglycemic drugs; I25.2 Old myocardial infarction